=== PATIENT | female | born 1970 | race Caucasian/White ===

== ENCOUNTER → 2016-05-27 | Outpatient (CLI) | payer BC ==
[~2016-05-27] MED LIST: BUPIVACAINE MPF 0.25% 10 ML VIAL. ONE; CHLO500T53 PO; DULO30CA2 PO; DULO60CA44 PO; GABA-585 PO; HYDR-2666 PO; LEVO88TA2 PO; OXYC1TAB9 PO; TIZA4TAB PO; TRAM50TA PO; TRAZ50TA15 PO; [UNRECOGNIZED DRUG - OTHER]; methylPREDNISolone ACETATE 40 MG/ML VIAL. ONE
--- NOTE | 2016-05-27 21:13 | PAIN ---
DATE OF SERVICE: 05/27/2016 DIAGNOSES: 1. Cervical radiculopathy with cervical spinal stenosis, cervical degenerative disk disease. 2. Myofascial pain. HISTORY OF PRESENT ILLNESS: The patient is a 46-year-old female who returns for followup status post cervical epidural steroid injections and trigger point injections. The patient reports these are helpful, but only by about 50% overall. The patient reports still some significant pain in the base of the neck, upper shoulders, right greater than left in the upper back, mid back as well as radiating pain and numbness into the hands and arms and tightness sensation in the neck and back. The patient has been doing physical therapies, stretching and strengthening exercises, heat and massage therapies as well as trigger point release therapies with a massage therapist and on her own with TENS unit use as well. The patient reports they only helped, but are not relieving the pain to a significant extent. The patient reports her pain is a 5-6 on a scale of 10, again some numbness and tingling in the hands and arms with using the upper extremities in repetitive motions or carrying items, driving, etc. The patient reports no new motor or sensory deficits, no new complaints. PHYSICAL EXAMINATION: VITAL SIGNS: The patient's blood pressure is 121/81, pulse 93, respirations 20, temperature 98.2 degrees Fahrenheit, weight is 107 pounds. GENERAL: The patient is awake, alert, oriented, appropriate, very pleasant demeanor. HEENT: Shows normocephalic, atraumatic. Extraocular movements are intact, symmetrical. Oral cavity shows mucous membranes are moist and pink. Dentition is intact. NECK: Shows anterior throat supple without palpable lymphadenopathy noted. Swallow reflex is symmetrical. Neck shows full rotation and motion of cervical spine, some minor tenderness with extension and forward flexion with some pulling and tight sensation in the base of the neck as well as the base of the skull bilaterally, slightly worse on the right than the left by report. CHEST: Shows normal on inspection. Breath sounds are clear to auscultation bilaterally. HEART: Shows S1 and S2 clear. ABDOMEN: Soft, nontender, nondistended. No palpable organomegaly is noted. No rebound or guarding demonstrated. BACK: Shows spine grossly in midline. Cervical paraspinous muscle shows some significant tenderness with very firm rope-like tender musculature throughout the superior, middle and inferior aspect of the cervical paraspinous musculature bilaterally with very firm rope-like musculature consistent with trigger point areas in musculature, more palpable on the left and more tender on the right. This is true into the superior, medial and lateral trapezius with multiple areas of trigger point rope-like musculature, more palpable on the left, but more tender on the right. This is true into the rhomboid distribution, the suprascapular region and infrascapular region and the upper distribution of the thoracic paraspinous musculature bilaterally with very firm rope-like musculature, essentially equal right and left with palpation and again no specific radiation with palpation throughout. PLAN: Options were discussed with the patient. The patient's old chart was reviewed as her current medication regimen and updated. Current review of systems updated today as well. We will plan on repeat trigger point injections of the aforementioned musculature. Risks were again discussed including, but not limited to bleeding, infection, possibility of intravascular injection sequelae, spread of local anesthetic and numbness, pneumothorax, side effects of steroid medication, exacerbation of symptoms and poor results regarding pain control. The patient understands and wishes to proceed. The patient will return to the clinic in approximately 4 weeks for followup. She was counseled on return appointment, activity level and side effects to be aware of. The patient was also given refill prescription for hydrocodone with instructions, side effects to be aware of as well. DIAGNOSES: 1. Myofascial pain. 2. Cervical radiculopathy with cervical degenerative disk disease and cervical spinal stenosis. PROCEDURE: Trigger point injection of the bilateral cervical paraspinous musculature, trapezius musculature, rhomboid musculature and thoracic paraspinous musculature bilaterally using a sterile prep and drape under local anesthesia. Medications injected a total of 40 mg of Depo-Medrol and total of 18 mL of 0.25% bupivacaine after negative aspiration at each level. Condition at discharge is stable. The patient tolerated the procedure well, had no complications. JESSICA GASCA MD DR: ANDREW/jay jay JOB#: [id number] / [id number]
== END ==
LOC: PNCL 08:05
PROVIDERS: ATTEND Anesthesiology
DX: M50.10 Cervical disc disorder with radiculopathy, unspecified cervical region (principal); M48.02 Spinal stenosis, cervical region
CPT/HCPCS: 20553; J1030; J3490

== ENCOUNTER → 2016-06-20 | Outpatient (CLI) | payer BC ==
[2016-06-18 16:54] VITALS: BP 104/53
[~2016-06-20] MED LIST changes: +IBUP200T77 PO; +ONDA4TAB10 SL
--- NOTE | 2016-06-21 18:09 | PAIN ---
DATE OF SERVICE: 06/20/2016 DIAGNOSES: 1. Cervical radiculopathy with cervical degenerative disk disease and cervical spinal stenosis. 2. Myofascial pain. HISTORY OF PRESENT ILLNESS: The patient is a 46-year-old female who returns for followup status post trigger point injections and cervical epidural steroid injection. The patient did well with each of these. Patient reports she has had very rough last 2 weeks, has been to the ER approximately 3 days ago with increased headaches, fever, tender in the neck and shoulders, but significant pain radiating to the upper extremities as it had previously. Patient was given some Benadryl and Reglan, which helped significantly. She was very impressed to how much her headache was improved with this and the pain has decreased since she has been to the ER a couple days ago. The patient reports no new motor or sensory deficits or other complaints, but still significant pain in the base of the neck, upper neck, base of the skull, shoulders bilaterally, upper back and lateral aspect of the shoulders as well. Also, some pain radiating to the upper extremities, slightly more on the left than the right. Currently, rates her pain as 4 on a scale of 10 currently, was 10/10 several days ago. The patient reports her medications were not as effective. Now that the combination with Benadryl, Reglan has been tried she has had much better results with the medications that she is normally taking with good analgesia with the hydrocodone. The patient reports no new motor or sensory deficits, no new other complaints. PHYSICAL EXAMINATION: VITAL SIGNS: The patient's blood pressure is 121/80, pulse 98, respirations 18, temperature is 99.1 degrees Fahrenheit, height 5 feet 1 inch, weighs 106 pounds. GENERAL: The patient is awake, alert, oriented, appropriate, very pleasant demeanor. HEENT: Shows normocephalic, atraumatic. Extraocular movements are intact and symmetrical. Oral cavity, mucous membranes are moist and pink. Dentition is intact. NECK: Shows anterior throat supple without palpable lymphadenopathy noted. Swallow reflex is symmetrical. CHEST: Shows normal on inspection. Breath sounds are clear to auscultation bilaterally. HEART: Shows S1 and S2 clear. ABDOMEN: Soft, nontender, nondistended. No palpable organomegaly is noted. BACK: Shows spine grossly midline. Cervical curvature is normal in lordotic fashion as is thoracic kyphosis. The musculature appears symmetrical in appearance and on inspection bilaterally in the cervical and thoracic distribution with palpation, significant tenderness with very firm rope-like musculature throughout the upper cervical paraspinous musculature weakened the occipital region and some extent bilaterally, very tender, very firm, very indurated and symmetrical ____ into the medial and lateral trapezius as well as the rhomboid musculature, suprascapular, infrascapular region, especially in the lateral aspect of the infrascapular musculature bilaterally, very firm, very tender rope-like musculature consistent with trigger point areas of muscle. This ____ the thoracic and rhomboid distribution to the mid back, as well, very tender, but without specific radiation. The patient shows some decreased ability to rotate the cervical spine past 45 degrees secondary to pain, right and left, as well as extension and forward flexion all tender with pulling sensation with forward flexion and with extension. EXTREMITIES: Upper extremities show deep tendon reflexes at 2+ in the biceps and triceps tendons. Motor exam is strong with manufacturers agent strength rated at 5/5 as is biceps and triceps flexion symmetrical. Peripheral pulses are 2+ radial distribution. No peripheral edema is noted. PLAN: Options were discussed with the patient. The patient's old chart was reviewed as her current medication regimen and updated. Current review of systems updated today as well. We will proceed with trigger point injections of the bilateral cervical paraspinous musculature, bilateral trapezius musculature, bilateral rhomboid musculature, bilateral thoracic paraspinous musculature. Risks were again discussed including, but not limited to bleeding, infection, possibility of intravascular injection sequelae, spread of local anesthetic and numbness, pneumothorax, side effects of steroid medication including immunosuppression and poor results regarding pain control. The patient understands and wishes to proceed. The patient will return to clinic in approximately 4 weeks for followup. She was given refill prescriptions for hydrocodone 7.5, 100 tablets dispensed, also Reglan 10 mg and chlorzoxazone for muscle relaxation at 500 mg all with instructions and side effects discussed. The patient also having very mild fever at home, was encouraged to follow up with her primary care physician regarding this as well. If this becomes more chronic or, worse, patient reports that she has an appointment with her primary physician set up for next week. The patient will return to clinic as scheduled. DIAGNOSES: 1. Myofascial pain. 2. Cervical radiculopathy, cervical spinal stenosis with cervical degenerative disk disease. PROCEDURE: Trigger point injection under sterile prep and drape using local anesthesia. MEDICATIONS INJECTED: A total of 40 mg Depo-Medrol and total of 16 mL of 0.25% bupivacaine. CONDITION AT DISCHARGE: Stable. The patient tolerated the procedure well, had no complications. JESSICA GASCA MD DR: ANDREW/jay jay JOB#: [id number] / [id number]
== END | disposition home or self-care (01) ==
LOC: PNCL 07:35
PROVIDERS: ATTEND Anesthesiology
DX: M50.10 Cervical disc disorder with radiculopathy, unspecified cervical region (principal)
CPT/HCPCS: 20553; J1030; J3490

== ENCOUNTER → 2016-07-18 | Outpatient (CLI) | payer BC ==
[2016-06-18 16:54] VITALS: BP 104/53
[~2016-07-18] MED LIST changes: -BUPIVACAINE MPF 0.25% 10 ML VIAL. ONE; +IOHEXOL 180 MG/ML 10 ML VIAL. ONE; +methylPREDNISolone ACETATE 80 MG/ML VIAL. ONE
--- NOTE | 2016-07-19 01:34 | PAIN ---
DATE OF SERVICE: 07/18/2016 DIAGNOSES: 1. Cervical radiculopathy with cervical degenerative disk disease and cervical spinal stenosis. 2. Myofascial pain. HISTORY OF PRESENT ILLNESS: The patient is a 46-year-old female who returns for followup, status post cervical epidural steroid injections and trigger point injections also medication management with hydrocodone and Voltaren patches. The patient reports that she is doing fairly well. She is much better from the trigger point injections, about 50% for the first 2 weeks, but the pain is beginning to increase in the radiating aspect of her left arm and into the hands bilaterally with some tingling and numbness in the hands also. The patient reports it as a sharp shooting pain, rates as a 4 on a scale of 10, currently mostly in the left arm, upper arm, triceps and forearm and the posterior aspect in the hand including all the fingers on the left side in a radicular fashion as she has had previously. The patient reports still some myofascial pain. She is still doing stretching and strengthening exercises, heat and massage therapies, doing some yoga classes as well. The patient reports no new motor or sensory deficits, no new complaints. PHYSICAL EXAMINATION: VITAL SIGNS: Today, the patient's blood pressure is 115/77, pulse 87, respirations 18, temperature 98.0 degrees Fahrenheit, height is 5 feet 1 inch, weight is 108 pounds. GENERAL: The patient is awake, alert, oriented, appropriate, very pleasant demeanor. HEENT: Shows normocephalic and atraumatic. Extraocular movements are intact, symmetrical. Oral cavity: Mucous membranes are moist and pink. Dentition is intact. NECK: Shows anterior throat supple without palpable lymphadenopathy noted. Swallow reflex is symmetrical. CHEST: Shows normal on inspection. Breath sounds are clear to auscultation bilaterally. HEART: Shows S1 and S2 clear. ABDOMEN: Soft, nontender, nondistended. No palpable organomegaly. No new rebound or guarding demonstrated. BACK: Shows spine grossly in midline. Normal-appearing cervical lordotic curvature and thoracic kyphotic curvature. The patient has some tattooing on the upper back and neck. Cervical paraspinous musculature shows symmetrical on inspection; with palpation, it is firm and tender bilaterally in the middle and inferior aspect of the cervical paraspinous musculature as well as superior medial and lateral trapezius, worse on the left than the right, but without significant atrophy or hypertrophy. There is some significant tenderness with palpation in the bilateral areas and some trigger points, which are firm rope-like musculature in the cervical paraspinous musculature as well as the trapezius into the rhomboid, more on the left than the right, suprascapular and infrascapular musculature likewise as well very tender, but less than on previous exam by comparison. EXTREMITIES: Upper extremities show deep tendon reflexes at 2+ in the biceps and triceps tendons. Motor exam is strong with 5/5 pollution control engineer strength, biceps and triceps flexion. Peripheral pulses are 2+ radial distribution bilaterally. No peripheral edema is noted. PLAN: Options were discussed with the patient and the patient's old chart was reviewed as her current medication regimen and updated. Current review of systems is updated today as well, and we will proceed with a cervical epidural steroid injection as first in the series with fluoroscopic guidance. Risks were again discussed including but not limited to bleeding, infection, possibility of epidural hematoma, subsequent neurological compromise, dural puncture, headaches, spinal cord and/or nerve damage, side effects of steroid medication and poor results regarding pain control. The patient understands and wishes to proceed. The patient will return to the clinic in approximately 2 weeks for followup. He was given refill prescription for hydrocodone as well as Lidoderm patches with instructions and side effects to be aware discussed with each of these as well as, instructed to continue with physical therapy, exercises, stretching and strengthening and massage, heat techniques as she has been doing. DIAGNOSES: Cervical radiculopathy with cervical degenerative disk disease and cervical spinal stenosis. PROCEDURE: Cervical epidural steroid injection in translaminar approach at the C6-C7 level using C-arm fluoroscopic guidance under sterile prep and drape using local anesthetic. MEDICATIONS INJECTED: Depo-Medrol 120 mg plus 5 mL of preservative-free normal saline and 2 mL of Isovue for contrast. CONDITION AT DISCHARGE: Stable. The patient tolerated the procedure well and had no complications. JESSICA GASCA MD DR: ANDREW/jay jay JOB#: [id number] / [id number]
== END | disposition home or self-care (01) ==
LOC: PNCL 07:38
PROVIDERS: ATTEND Anesthesiology
DX: M50.10 Cervical disc disorder with radiculopathy, unspecified cervical region (principal); M48.02 Spinal stenosis, cervical region
CPT/HCPCS: 62321; J1030; J1040

== ENCOUNTER → 2016-08-14 | Outpatient (CLI) | payer BC ==
[2016-06-18 16:54] VITALS: BP 104/53
[~2016-08-14] MED LIST changes: +BUPIVACAINE MPF 0.25% 10 ML VIAL. ONE; +HYDR-2762 PO; -IOHEXOL 180 MG/ML 10 ML VIAL. ONE; -methylPREDNISolone ACETATE 80 MG/ML VIAL. ONE
--- NOTE | 2016-08-14 18:43 | PAIN ---
DATE OF SERVICE: 08/14/2016 DIAGNOSES: 1. Cervical radiculopathy with cervical degenerative disk disease and cervical spinal stenosis. 2. Myofascial pain. HISTORY OF PRESENT ILLNESS: The patient is a 46-year-old female who returns for followup status post both cervical epidural steroid injections and trigger point injections. Last visit was on 07/18/2016. The patient underwent cervical epidural steroid injection at that time with good decrease in pain in her left arm and shoulder, not significant pain reported in the base of the neck, shoulders, upper neck and between the shoulder blades with consistent myofascial pain in these regions. The patient continues to do physical therapy exercises, doing heat and massage therapies and techniques, has been avoiding excessive weightbearing with the upper extremities, but reports still significant tightness and pain in the shoulders and neck as well as the upper back itself. The patient reports no new motor or sensory deficits, no new bowel or bladder incontinence. Reports pain is 6 on a scale of 10. Describes as aching, dull, stabbing, tight and debilitating, still awakens her from sleep on occasion, but not every night. The patient reports otherwise no new motor or sensory deficits. No new changes. PHYSICAL EXAMINATION: VITAL SIGNS: Today, the patient's blood pressure is 121/88, pulse 85, respirations 20, temperature 98.0 degrees Fahrenheit. Height is 5 feet 1 inch. Weight is 112 pounds. GENERAL: The patient is awake, alert, oriented, appropriate, very pleasant demeanor. HEENT: Head shows normocephalic, atraumatic. Extraocular movements are intact, symmetrical. Oral cavity, mucous membranes are moist and pink. Dentition is intact. NECK: Shows anterior throat supple. Swallow reflex is symmetrical. CHEST: Shows normal on inspection. Breath sounds clear to auscultation bilaterally. HEART: Shows S1 and S2. No murmurs auscultated. ABDOMEN: Soft, nontender, nondistended. BACK: Shows spine grossly midline. Normal appearing cervical lordotic curvature and thoracic kyphotic curvature with palpation in the cervical paraspinous musculature, what appears symmetrical, but with palpation shows significant tenderness and very firm rope-like musculature throughout the upper, middle and lower distribution, cervical paraspinous musculature as well as the superior, medial and lateral trapezius, slightly more on the left than the right with tenderness and more on the right than the left with cervical paraspinous musculature tenderness, also tender in the rhomboid musculature with very firm rope-like musculature as well as the right superior aspect of the suprascapular and infrascapular musculature and in the thoracic paraspinous musculature and the upper thoracic distribution bilaterally, but without specific radiation. EXTREMITIES: Upper extremities show deep tendon reflexes 2+ in the biceps and triceps tendons. Motor exam is strong with creative manager strength rated at 5/5 and equal. Options were discussed with the patient and the patient's old chart was reviewed as her current medication regimen updated. Current review of systems updated today as well. We will proceed with trigger point injections of the aforementioned musculature. Risks were again discussed including, but not limited to bleeding, infection, possibility of intravascular injection sequelae, pneumothorax, side effects of steroid medication as well as spread of local anesthetic and numbness and poor results regarding pain control. The patient understands and wishes to proceed. The patient will return to clinic in approximately 4 weeks for followup, was counseled on return appointment, activity level and side effects to be aware of. Also discussed the patient's medication regimen. She has been taking hydrocodone which we had been providing with [facility] reporting showed tramadol, prescription filled on 07/16/2015. The patient denies filling that and will check with her pharmacy, and she was quite surprised that this was on the recent filled record. We will check with her pharmacy as well and make sure that no one has stolen her identity or other circumstances that may be responsible for this showing up on her report. DIAGNOSIS: Myofascial pain. PROCEDURE: Trigger point injections of the bilateral cervical paraspinous musculature, bilateral trapezius musculature, bilateral rhomboid musculature, bilateral thoracic paraspinous musculature, right supra and infraclavicular musculature, using a sterile prep and drape, local anesthetic. Medication injected is a total of 40 mg Depo-Medrol plus total of 12 mL of 0.25% bupivacaine, after negative aspiration at each injection. CONDITION AT DISCHARGE: Stable. The patient tolerated the procedure well, had no complications. JESSICA GASCA MD DR: ANDREW/jay jay JOB#: [id number] / [id number]
== END | disposition home or self-care (01) ==
LOC: PNCL 07:40
PROVIDERS: ATTEND Anesthesiology
DX: M79.1 Myalgia (principal); M50.10 Cervical disc disorder with radiculopathy, unspecified cervical region; M48.02 Spinal stenosis, cervical region
CPT/HCPCS: 20553; J1030; J3490

== ENCOUNTER → 2016-09-09 | Outpatient (CLI) | payer BC ==
[2016-06-18 16:54] VITALS: BP 104/53
[~2016-09-09] MED LIST changes: -BUPIVACAINE MPF 0.25% 10 ML VIAL. ONE; +IOHEXOL 180 MG/ML 10 ML VIAL. ONE; +methylPREDNISolone ACETATE 80 MG/ML VIAL. ONE
--- NOTE | 2016-09-10 01:39 | PN ---
DATE: 09/09/2016 PROGRESS NOTE FOR PAIN CLINIC DIAGNOSES: 1. Cervical radiculopathy with cervical degenerative disk disease and cervical spinal stenosis. 2. Myofascial pain. HISTORY OF PRESENT ILLNESS: A 46-year-old female who returns for followup status post cervical epidural steroid injection x 1 and trigger point injections. The patient reports she is overall has been doing better, about 50% improvement overall, still some pain in the base of the neck and shoulders, right and left fairly equal. It is a 7 on a scale of 10 at its worst and 3 at ____. The patient reports worse with activity, standing, walking. She was taken into the physical therapy; however, she is doing massage therapies, heat, stretching techniques as well on her own. Still have some difficulty sleeping more than 4 hours at night. She has to reposition get of the bed, changed position with her neck and shoulders to decrease in pain. Again she has had multiple trigger point injections which were helpful, temporary and 1 cervical epidural steroid injection that is ____ with good results again somewhat temporary, but improved overall. The patient reports no new motor or sensory deficits, no new complaints. The patient reports her pain is aching, sharp, tight shooting with some stabbing, constant qualities as well. PHYSICAL EXAMINATION: VITAL SIGNS: The patient's blood pressure 102/64, pulse 79, respirations are 20, temperature is 98.1 degrees Fahrenheit. Height is 5 feet 1 inch. Weight is 111 pounds. GENERAL: The patient is awake, alert, oriented, appropriate, very pleasant demeanor. HEENT: Head shows normocephalic, atraumatic. Extraocular movements are intact and symmetrical. Oral cavity, mucous membranes are moist and pink. Dentition is intact. NECK: Shows anterior throat supple without palpable lymphadenopathy noted. Swallow reflex is symmetrical. CHEST: Shows normal on inspection. Breath sounds are clear to auscultation bilaterally. HEART: Shows S1 and S2 clear. ABDOMEN: Soft, nontender, nondistended. BACK: Shows spine grossly midline. Cervical spine shows normal lordotic curvature. Cervical paraspinous musculature shows some moderate tenderness with palpation in the inferior aspect of the cervical paraspinous musculature, but without specific trigger points. There is trigger point in the medial superior trapezius on the left and slightly less tender on the right, present without significant radiation. The patient does show good rotational motion of cervical spine, both laterally greater than 45 degrees, close to 90 degrees right and left rotation as well as extension and forward flexion without significant disability. EXTREMITIES: Upper extremities showed deep tendon reflexes at 2+ in the biceps and triceps tendons. Motor exam is strong with new accounts representative strength rated at 5/5 as is biceps and triceps flexion and symmetrical. Options were discussed with the patient. The patient's old chart was reviewed as her current medication regimen updated. Current review of systems updated today as well and we will proceed with a second in the series of cervical epidural steroid injection with fluoroscopic guidance. Risks were again discussed including, but not limited to bleeding, infection, possibility of epidural hematoma, subsequent neurologic compromise, dural puncture, headaches, spinal cord and/or nerve damage, side effects of steroid medication and poor results regarding pain control. The patient understands and wishes to proceed. The patient will return to clinic in approximately 2 weeks for followup, was counseled on return appointment, activity level and side effects to be aware of, also discussed the patient's medication regimen. She is taking tramadol, which she received as an outside facility also we have been prescribing hydrocodone. We discussed this would no longer be provided as we do not supplied this on a long-term basis and any further prescriptions would need to go through her primary care physician, although I feels she will need these medications from time to time. Now she does have chronic developing issues with the patient and the patient understands this as well. We gave her 1 final prescription today for hydrocodone 7.5 mg 1 tablet every 4-6 hours on a p.r.n. number basis, dispensed 100 with instructions, side effects to be aware of discussed as well. DIAGNOSIS: Cervical radiculopathy, cervical spinal stenosis, cervical degenerative disk disease. PROCEDURE: Cervical epidural steroid injection in translaminar approach at the C6-C7 level. Using a C-arm fluoroscopic guidance under sterile prep and drape using local anesthetic. Medications injected 120 mg Depo-Medrol plus 5 mL of preservative-free normal saline and 2 mL Isovue for contrast. CONDITION AT DISCHARGE: Stable. The patient tolerated the procedure well and had no complications. JESSICA GASCA MD DR: ANDREW/jay jay JOB#: [id number] / [id number] JOSE Ignacio
== END | disposition home or self-care (01) ==
LOC: PNCL 07:40
PROVIDERS: ATTEND Anesthesiology
DX: M50.123 Cervical disc disorder at C6-C7 level with radiculopathy (principal); M48.02 Spinal stenosis, cervical region
CPT/HCPCS: 62321; J1030; J1040

== ENCOUNTER → 2016-10-29 | Outpatient (CLI) | payer BC ==
[2016-06-18 16:54] VITALS: BP 104/53
[~2016-10-29] MED LIST changes: -HYDR-2666 PO; +HYDR-2758 PO
--- NOTE | 2016-10-30 01:56 | PAIN ---
DATE OF SERVICE: PROGRESS NOTE FOR PAIN CLINIC DIAGNOSES: 1. Cervical radiculopathy with cervical spinal stenosis and cervical degenerative disk disease. 2. Myofascial pain. HISTORY OF PRESENT ILLNESS: The patient is a 46-year-old female, who returns for followup, status post cervical epidural steroid injection x 2, last seen on 09/09/2016, also with trigger point injections in the past, which she is responding to fairly well with about a 50% improvement on each of these. The patient reports again after last injection, it is about 70% improved in the neck and shoulders with some returning radicular pain now in the bilateral shoulders and arms with tingling in the hands. She has been dropping things with her right hand more noticeably than the left, rates her pain as a 9 on a scale of 10 at its worst, 7 at its least. It is an aching, sharp, tight, cramping, stabbing, and constant pain, becoming more noticeable. It has been worse with using upper extremities, reaching above her head, and awakens her from sleep at night. She has to reposition or take pain medication to get the pain down where she can sleep again. The patient reports no new motor or sensory deficits, but still significant pain is noted in the bilateral upper extremities. PHYSICAL EXAMINATION: VITAL SIGNS: The patient's blood pressure is 130/88, pulse is ____, respirations 18, temperature 98.0 degrees Fahrenheit, height is 5 feet 1 inch, and weight is 114 pounds. GENERAL: The patient is awake, alert, oriented, and appropriate, very pleasant demeanor. HEENT: Head shows normocephalic, atraumatic. Extraocular movements are intact and symmetrical. Oral cavity, mucous membranes are moist and pink. Dentition is intact. NECK: Shows anterior throat supple without palpable lymphadenopathy noted. Swallow reflex is symmetrical. CHEST: Shows normal on inspection. Breath sounds are clear to auscultation bilaterally. HEART: Shows S1 and S2 clear. No murmurs auscultated. ABDOMEN: Soft, nontender, and nondistended. BACK: Shows spine grossly midline. Cervical paraspinous musculature shows some moderate tenderness with palpation in the middle and inferior aspect of the cervical paraspinous musculature as well as the superior, medial, and lateral trapezius, slightly more tender on the right than the left, but appears symmetrical with no atrophy or hypertrophy. The patient shows good rotational motion of the cervical spine, both laterally as well as in extension and flexion with some minor pain reported with extension only. EXTREMITIES: Upper extremities showed deep tendon reflexes 2+ in the biceps and triceps tendons. 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 Options were discussed with the patient. The patient's old chart was reviewed, as well as her current medication regimen updated, current review of systems updated today as well, and we will proceed with a third in the series of cervical epidural steroid injection today with fluoroscopic guidance. Risks were again discussed, including, but not limited to bleeding, infection, possibility of epidural hematoma, subsequent neurologic compromise, dural puncture, headaches, spinal cord and/or nerve damage, side effects of steroid medication, and poor results regarding pain control. The patient understands and wishes to proceed. The patient will return to clinic in approximately 1 week for followup and we will plan on trigger point injections at her next visit ____. The patient was counseled on activity level as well as side effects to be aware of. DIAGNOSES: Cervical radiculopathy with cervical spinal stenosis and cervical degenerative disk disease. PROCEDURE: Cervical epidural steroid injection in translaminar approach at C6-7 level using C-arm fluoroscopic guidance under sterile prep and drape using local anesthetic. MEDICATIONS INJECTED: Depo-Medrol 120 mg plus 5 mL preservative-free normal saline and 2 mL of Isovue for contrast. CONDITION ON DISCHARGE: Stable. The patient tolerated the procedure well, had no complications. JESSICA GASCA MD DR: ANDREW/jay jay JOB#: [id number] / [id number]
== END | disposition home or self-care (01) ==
LOC: PNCL 08:10
PROVIDERS: ATTEND Anesthesiology
DX: M50.123 Cervical disc disorder at C6-C7 level with radiculopathy (principal); M48.02 Spinal stenosis, cervical region
CPT/HCPCS: 62321; J1030; J1040

== ENCOUNTER → 2016-11-05 | Outpatient (CLI) | payer BC ==
[2016-06-18 16:54] VITALS: BP 104/53
[~2016-11-05] MED LIST changes: +BUPIVACAINE MPF 0.25% 10 ML VIAL. ONE; -IOHEXOL 180 MG/ML 10 ML VIAL. ONE; -methylPREDNISolone ACETATE 80 MG/ML VIAL. ONE
== END | disposition home or self-care (01) ==
LOC: PNCL 09:22
PROVIDERS: ATTEND Anesthesiology
DX: M79.1 Myalgia (principal); M50.10 Cervical disc disorder with radiculopathy, unspecified cervical region; M48.02 Spinal stenosis, cervical region
CPT/HCPCS: 20553; J1030; J3490

== ENCOUNTER → 2016-12-11 | Outpatient (CLI) | payer BC ==
[2016-06-18 16:54] VITALS: BP 104/53
--- NOTE | 2016-12-12 00:23 | PN ---
DATE: 12/11/2016 PROGRESS NOTE FOR PAIN CLINIC DIAGNOSES: 1. Cervical radiculopathy with cervical degenerative disk disease and cervical spinal stenosis. 2. Myofascial pain. HISTORY OF PRESENT ILLNESS: The patient is a 46-year-old female who returns for followup status post trigger point injection as well as cervical epidural steroid injections, most recently seen on 11/05/2016. The patient did very well with the trigger point injection at that time, reports the pain is returning now in the upper back, neck, shoulders, in to the mid back as well bilaterally, somewhat worse on the left than the right, has been previously, but very tender, rates as 8 on a scale of 10 at its worst, at 3 on a scale of 10 at its least. The patient reports it as a 3 on a scale of 10, states aching, tight shooting, tingling with radiating, constant pain, becoming more severe, worse with activity, worse with motion, using her arms above her head, especially on the left side. She has difficulty with sleeping. She sleeping about 3-4 hours a night, she has to reposition, take pain medication at night. She is only taking, by her report, anti-inflammatories now and gabapentin for the pain management. The patient reports no new motor or sensory deficits, no side effects. PHYSICAL EXAMINATION: VITAL SIGNS: The patient's blood pressure is 112/79, pulse 67, respirations 18, temperature is 98.3 degrees Fahrenheit. Height is 5 feet 1 inch, weight is 119 pounds. GENERAL: The patient is awake, alert, oriented, appropriate, very pleasant demeanor. HEENT: Head shows normocephalic, atraumatic. Extraocular movements are intact and symmetrical. Oral cavity shows mucous membranes moist and pink. Dentition is intact. NECK: Shows anterior throat supple without palpable lymphadenopathy noted. Swallow reflex is symmetrical. CHEST: Shows normal on inspection. Breath sounds are clear to auscultation bilaterally. HEART: Shows S1 and S2 clear. ABDOMEN: Soft, nontender, nondistended. BACK: Shows spine grossly in the midline. Cervical paraspinous musculature shows symmetrical on inspection with palpation and is very firm, very tender rope-like areas of musculature consistent with trigger point musculature in the superior aspect of the cervical paraspinous musculature throughout the middle and lower distribution, also in the superior medial and lateral trapezius, more tender on the left than the right with very firm rope-like musculature throughout these regions, also into the rhomboid musculature, again worse on the left than the right, but present bilaterally without radiation, supra and infrascapular musculature on the right side; however, is much more tender than the left with areas of trigger point musculature, very tender as well. This is true into the mid thoracic distribution of paraspinous muscles, not as tender, but significantly palpable rope-like musculature throughout these regions. Options were discussed with the patient. The patient's old chart was reviewed as her current medication regimen updated. Current review of systems updated today as well and we will proceed with trigger point injections of the identified musculature. Risks were again discussed including, but not limited to bleeding, infection, possibility of intravascular injection sequelae, spread of local anesthetic and numbness, pneumothorax, side effects of steroid medication and poor results regarding pain control. The patient understands and wishes to proceed. The patient will return to the clinic in approximately 2 weeks for followup, was counseled on return appointment, activity level and side effects to be aware of. DIAGNOSIS: Myofascial pain. PROCEDURE: Trigger point injections of bilateral cervical paraspinous musculature, bilateral trapezius, bilateral rhomboid musculature, bilateral thoracic paraspinous musculature as well as the left supra and infrascapular musculature using sterile prep and drape under local anesthetic. Medication injected is a total of 40 mg of Depo-Medrol plus a total of 12 mL of 0.25% bupivacaine after negative aspiration in each region. CONDITION AT DISCHARGE: Stable. The patient tolerated the procedure well, had no complications. JESSICA GASCA MD DR: ANDREW/jay jay JOB#: [id number] / [id number]
== END | disposition home or self-care (01) ==
LOC: PNCL 13:27
PROVIDERS: ATTEND Anesthesiology
DX: M79.1 Myalgia (principal); M50.10 Cervical disc disorder with radiculopathy, unspecified cervical region; M48.02 Spinal stenosis, cervical region
CPT/HCPCS: 20553; J1030; J3490

== ENCOUNTER → 2016-12-27 | Outpatient (CLI) | payer BC ==
[2016-06-18 16:54] VITALS: BP 104/53
[~2016-12-27] MED LIST changes: -BUPIVACAINE MPF 0.25% 10 ML VIAL. ONE; +IOHEXOL 180 MG/ML 10 ML VIAL. ONE; +methylPREDNISolone ACETATE 80 MG/ML VIAL. ONE
--- NOTE | 2016-12-27 09:48 | PAIN ---
DATE OF SERVICE: 12/27/2016 PROGRESS NOTE FOR PAIN CLINIC DIAGNOSES: 1. Cervical radiculopathy with cervical degenerative disk disease and cervical spinal stenosis. 2. Myofascial pain. HISTORY OF PRESENT ILLNESS: The patient is a 46-year-old female, who returns for followup status post trigger point injection as well as cervical epidural steroid injection. The patient did very well with each of these for at least a temporary period of time. The patient reports about 50% improvement after the last trigger point injections, but her main complaint today is pain in the neck that radiates to the left upper extremity as it has previously. The patient reports tingling and numbness. It is a constant, severe pain that is aching, tight and shooting into the left arm, worse over the past week or so, rates it at 8 on a scale of 10 when it is worse and 6 ____, patient report it is 6 on a scale of 10 today. The patient reports no new motor or sensory deficits, no new bowel or bladder incontinence. The trigger point injections have increased some mobility with the neck and shoulders, but still significant pain that returns after about 2-3 weeks. The patient reports it awakens her from sleep. She sleeps only 3-4 hours at a time at night to reposition or change positions to get back to sleep. PHYSICAL EXAMINATION: VITAL SIGNS: The patient's blood pressure 110/63, pulse 77, respirations 18, temperature 97.9 degrees Fahrenheit. Height is 5 feet 1 inch, weight is 122 pounds. GENERAL: The patient is awake, alert, oriented, appropriate, very pleasant demeanor. HEENT: Head shows normocephalic, atraumatic. Extraocular movements intact, symmetrical. Oral cavity: Mucous membranes moist and pink. Dentition is intact. NECK: Shows anterior throat supple. Swallow reflex is symmetrical. CHEST: Shows normal with inspection. Breath sounds clear to auscultation bilaterally. HEART: Shows S1 and S2 clear. No murmurs auscultated. ABDOMEN: Soft, nontender, nondistended. BACK: Shows spine grossly midline. Cervical paraspinous muscle shows symmetrical with inspection on palpation shows some moderate tenderness in the middle and inferior aspect of the cervical paraspinous musculature bilaterally and into the left trapezius, more than the right with tenderness to palpation again diffusely without trigger points or radiation, but significant trigger points in the rhomboid distribution bilaterally, worse on the left ____ thoracic paraspinous on the left side greater than right. Upper extremity showed deep tendon reflexes 2+ in the biceps and triceps tendons. 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 Peripheral pulses are 2+ in the radial distribution bilaterally. Options were discussed with the patient and the patient's old chart was reviewed as her current medication regimen updated. Current review of systems updated today as well. We will proceed with a first in this series of cervical epidural steroid injection using C-arm fluoroscopic guidance. Risks were again discussed including, but not limited to bleeding, infection, possibility of epidural hematoma, subsequent neurologic compromise, dural puncture, headaches, spinal cord and/or nerve damage, side effects of steroid medication and poor results regarding pain control. The patient understands and wishes to proceed. The patient will return to clinic in approximately 2 weeks for followup, was counseled on return appointment, activity level and side effects to be aware of. DIAGNOSES: Cervical radiculopathy, cervical spinal stenosis and cervical degenerative disk disease. PROCEDURE: Cervical epidural steroid injection in translaminar approach at the C6-C7 level using C-arm fluoroscopic guidance under sterile prep and drape using local anesthetic. MEDICATION INJECTED: A total of 120 mg Depo-Medrol plus 5 mL of preservative-free normal saline and 2 mL of Isovue for contrast. CONDITION AT DISCHARGE: Stable. The patient tolerated procedure well, had no complications. JESSICA GASCA MD DR: ANDREW/jay jay JOB#: [id number] / [id number]
== END | disposition home or self-care (01) ==
LOC: PNCL 07:31
PROVIDERS: ATTEND Anesthesiology
DX: M50.123 Cervical disc disorder at C6-C7 level with radiculopathy (principal); M48.02 Spinal stenosis, cervical region
CPT/HCPCS: 62321; J1030; J1040

== ENCOUNTER → 2017-01-03 | Outpatient (CLI) | payer BC ==
[2016-06-18 16:54] VITALS: BP 104/53
[~2017-01-03] MED LIST changes: -IOHEXOL 180 MG/ML 10 ML VIAL. ONE; -methylPREDNISolone ACETATE 40 MG/ML VIAL. ONE; -methylPREDNISolone ACETATE 80 MG/ML VIAL. ONE
--- NOTE | 2017-01-03 12:23 | KCIC ---
MRI Cervical Spine Without Contrast History: Cervical radiculopathy, previous neck fracture as a teenager, chronic neck pain, bilateral upper extremity pain and numbness Technique: Multiplanar, multi sequential noncontrast MR imaging was performed of the cervical spine. Comparison: None Findings: Cervical vertebral body stature is maintained. There is straightening of the cervical spine. Cervical cord caliber is within normal limits without convincing focal signal abnormality allowing for mild artifact. There is no significant marrow edema. AP alignment is adequate. There is moderate to severe degenerative disc disease C5-C6, minimally at C6-7 and C4-5. There is posterior annular tear at C4-5. C2-C3: Neural foramina and spinal canal are adequate. C3-C4: There is minimal right uncovertebral degenerative change. Spinal canal and left neural foramen are adequate, mild to moderate narrowing of the right neural foramen. C4-C5: There is negligible posterior bulge. Central canal is borderline 10 mm. Neural foramina are overall adequate. C5-C6: There is disc osteophyte complex greater in the right lateral recess. Central canal is minimally narrowed to 9 mm, somewhat greater degree of narrowing of the right lateral recess. There is right uncovertebral degenerative change. There is fairly severe narrowing of the right neural foramen, left neural foramen overall adequate. C6-C7: There is negligible posterior bulge/protrusion. Central canal is borderline 10 mm. Neural foramina are adequate. C7-T1: Spinal canal and neural foramina are adequate. Impression: 1. There is mild spinal stenosis C5-C6, greater degree of right lateral recess stenosis. 2. There is fairly severe narrowing of the right C5-C6 neural foramen primarily from uncovertebral degenerative change, lesser degree of narrowing on the right at C3-4. 3. There is moderate to severe degenerative disc disease at C5-C6, minimally at C4-5 and C6-7. There is mild spondylosis. Electronically signed by: Gucci Rosales MD (01/03/2017 12:19 PM) [id number]
== END | disposition home or self-care (01) ==
LOC: KCIC MRI 11:38
PROVIDERS: ATTEND Neurological Surgery
DX: M48.02 Spinal stenosis, cervical region (principal); M50.122 Cervical disc disorder at C5-C6 level with radiculopathy; M50.121 Cervical disc disorder at C4-C5 level with radiculopathy; M50.123 Cervical disc disorder at C6-C7 level with radiculopathy; M47.22 Other spondylosis with radiculopathy, cervical region
CPT/HCPCS: 72141

== ENCOUNTER → 2017-02-06 | Outpatient (CLI) | payer BC ==
[2016-06-18 16:54] VITALS: BP 104/53
[~2017-02-06] MED LIST changes: +HYDR200T5 PO; +IOHEXOL 180 MG/ML 10 ML VIAL. ONE; +methylPREDNISolone ACETATE 40 MG/ML VIAL. ONE; +methylPREDNISolone ACETATE 80 MG/ML VIAL. ONE
--- NOTE | 2017-02-07 04:31 | PAIN ---
DATE OF SERVICE: 02/06/2017 PROGRESS NOTE FOR PAIN CLINIC DIAGNOSES: Cervical radiculopathy with cervical spinal stenosis and cervical degenerative disk disease. HISTORY OF PRESENT ILLNESS: The patient is a 46-year-old female who returns for followup status post cervical epidural steroid injection x 1 on 12/27/2016. The patient reports she did very well with this. Initially about 75% improvement on the pain in the neck and bilateral upper extremities and again worse on the left with a gradual return of the pain to about 40% improvement overall. Currently, the patient reports it is 8 on a scale of 10. It is worse 7 on average at 3 on a scale of 10 at least is a 3 on a scale of 10 today. The patient reports the pain is aching, sharp, dull tight shooting, stabbing, becoming more constant in the base of the neck, shoulders, upper back and into left upper extremity greater than the right, but in both hands with some tingling and numbness as well. The patient reports it awakens her from sleep about 3-4 times at night. She has to reposition, get out of bed, changing positions, take pain medication she can use to get back to sleep. The patient reports no new motor or sensory deficits, no new bowel or bladder incontinence or other complaints. PHYSICAL EXAMINATION: VITAL SIGNS: The patient's blood pressure 106/60, pulse 81, respirations 18, temperature 98.1 degrees Fahrenheit. Height is 5 feet 1 inch, weight is 120 pounds. GENERAL: The patient is awake, alert, oriented, appropriate, very pleasant demeanor. HEENT: Head shows normocephalic, atraumatic. Extraocular movements are intact and symmetrical. Oral cavity shows mucous membranes moist and pink. Dentition is intact. NECK: Shows anterior throat supple without palpable lymphadenopathy noted. Swallow reflex is symmetrical. CHEST: Shows normal on inspection. Breath sounds clear to auscultation bilaterally. HEART: Shows S1, S2 clear. No murmurs auscultated. ABDOMEN: Soft, nontender, nondistended. BACK: Shows spine grossly midline. Cervical paraspinous musculature shows some moderate tenderness with palpation, but symmetrical on inspection with diffuse tenderness in the inferior and middle aspect of the cervical paraspinous muscles without radiation and trapezius musculature slightly tender as well to a moderate extend actually more on the left than the right, but again symmetrical without atrophy, hypertrophy. The patient has good rotation and motion of cervical spine is slightly guarded with extension, but not with forward flexion. Right and left lateral rotation is slightly guarded, but full rotation past 45 degrees right and left. Upper extremities show deep tendon reflexes 2+ in the biceps and triceps tendons. 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 Peripheral pulses are 2+ bilaterally. No peripheral edema is noted. Options were discussed with the patient and the patient's old chart was reviewed as her current medication regimen updated. Current review of systems updated today as well. We will proceed with a second in this series of cervical epidural steroid injection with fluoroscopic guidance. Risks were again discussed including, but not limited to bleeding, infection, possibility of epidural hematoma and subsequent neurologic compromise, dural puncture, headaches, spinal cord and/or nerve damage, side effects of steroid medication and poor results regarding pain control. The patient understands and wishes to proceed. The patient will return to clinic in approximately 2 weeks for followup, was counseled on return appointment, activity level and side effects to be aware of. DIAGNOSES: Cervical radiculopathy with cervical degenerative disk disease and cervical spinal stenosis. PROCEDURE: Cervical epidural steroid injection in translaminar approach at the C6-C7 level using a C-arm fluoroscopic guidance under sterile prep and drape using local anesthetic. MEDICATIONS: Injected a total of 120 mg Depo-Medrol plus 5 mL preservative-free normal saline and 2 mL of Isovue for contrast. CONDITION AT DISCHARGE: Stable. The patient tolerated procedure well, had no complications. JESSICA GASCA MD DR: ANDREW/jay jay JOB#: [id number] / [id number]
== END | disposition home or self-care (01) ==
LOC: PNCL 08:17
PROVIDERS: ATTEND Anesthesiology
DX: M50.123 Cervical disc disorder at C6-C7 level with radiculopathy (principal); M48.02 Spinal stenosis, cervical region
CPT/HCPCS: 62321; J1030; J1040

== ENCOUNTER → 2017-03-25 | Outpatient (CLI) | payer BC ==
[2016-06-18 16:54] VITALS: BP 104/53
--- NOTE | 2017-03-25 18:01 | PAIN ---
DATE OF SERVICE: 03/25/2017 DIAGNOSES: Cervical radiculopathy with cervical degenerative disk disease and cervical spinal stenosis. HISTORY OF PRESENT ILLNESS: The patient is a 46-year-old female who returns for followup status post cervical epidural steroid injection x 2, last seen on 02/06/2017. The patient did very well with this with approximately 70%-80% improvement with pain returning now in the base of the neck and left greater than right upper extremity pain. The patient reports no new motor or sensory deficits, no new bowel or bladder incontinence or other complaints but pain has been returning. She is scheduled to have anterior cervical fusion at the end of April and is trying to get some relief. In the meantime, the patient reports neck feels like it has limited mobility. There is an ache that is becoming more constant and pain in the hands, worse on the left than the right but present bilaterally with radiation into the upper extremities. The patient reports it is tingling, stabbing, constant, aching, sharp, dull, tight, shooting; rates an 8 on a scale of 10 at its worse, 6 on average and a 3 at its least, is a 5 today. The patient reports no new motor or sensory deficits with no bowel or bladder incontinence is noted, but still significant pain as noted which awakens her from sleep. It is beginning to once again. Initially, she was doing very well with increased activity and greater tolerance of activity, but sleeping better at night. Now, it is beginning to return with less ability to use her upper extremities in a repetitive motion especially driving the car, lifting things, carrying items, becoming much more uncomfortable once again. PHYSICAL EXAMINATION: VITAL SIGNS: Today, his blood pressure is 109/75, pulse 80, respirations 18, temperature 98.1 Fahrenheit. He is 5 feet 1 inch, weight is 121 pounds. GENERAL: The patient is awake, alert, oriented, appropriate, very pleasant demeanor. HEENT: Head shows normocephalic, atraumatic. Extraocular movements are intact and symmetrical. Oral cavity shows mucous membranes moist and pink. Dentition is intact. NECK: Shows anterior throat supple without palpable lymphadenopathy noted. Swallow reflex is symmetrical. CHEST: Shows normal on inspection. Breath sounds clear to auscultation bilaterally. HEART: Shows S1 and S2 clear. No murmurs auscultated. ABDOMEN: Soft, nontender, nondistended. BACK: Shows spine grossly in the midline. Cervical paraspinous musculature shows symmetrical on inspection with palpation shows some moderate tenderness only diffusely in the low cervical paraspinous distribution without radiation. The patient has good rotational motion both laterally greater than 45 degrees, right and left with full extension and full forward flexion without significant pain reported. The patient's back shows spine grossly in midline. Normal appearing lordotic curvature. Paraspinous musculature is nontender. Upper extremities show deep tendon reflexes at 2+ in the past biceps and triceps tendons. Motor exam is strong with litigation partner strength rated at 5/5 and equal. Peripheral pulses are 2+ radial distribution. Options were discussed with the patient. The patient's old chart was reviewed as her current medication regimen and updated. Current review of systems is updated today as well and we will proceed with a third in the series of cervical epidural steroid injection fluoroscopic guidance. Risks were again discussed including but not limited to bleeding, infection, possibility of epidural hematoma, subsequent neurological compromise, dural puncture, headaches, spinal cord and/or nerve damage, side effects of steroid medication and poor results regarding pain control. The patient understands and wishes to proceed. The patient will return to the clinic in approximately 2 weeks for followup. He was counseled on return appointment, activity levels and side effects to be aware of. DIAGNOSES: Cervical radiculopathy with cervical degenerative disk disease and cervical spinal stenosis. PROCEDURE: Cervical epidural steroid injection using C-arm fluoroscopic guidance under sterile prep and drape using local anesthetic. MEDICATION INJECTED: Total of 120 mg of Depo-Medrol plus 5 mL of preservative-free normal saline and 2 mL of Isovue for contrast. CONDITION AT DISCHARGE: Stable. The patient tolerated the procedure well and had no complications. JESSICA GASCA MD DR: ANDREW/jay jay JOB#: [id number] / [id number]
== END | disposition home or self-care (01) ==
LOC: PNCL 07:40
PROVIDERS: ATTEND Anesthesiology
DX: M50.10 Cervical disc disorder with radiculopathy, unspecified cervical region (principal); M48.02 Spinal stenosis, cervical region
CPT/HCPCS: 62321; J1030; J1040

== ENCOUNTER → 2017-06-04 | Outpatient (CLI) | payer BC ==
[~2017-06-04] MED LIST changes: -CHLO500T53 PO; -DULO30CA2 PO; -DULO60CA44 PO; -GABA-585 PO; -HYDR-2758 PO; -HYDR-2762 PO; -HYDR200T5 PO; -IBUP200T77 PO; +IOHEXOL 180 MG/ML 10 ML VIAL.; -IOHEXOL 180 MG/ML 10 ML VIAL. ONE; -LEVO88TA2 PO; -ONDA4TAB10 SL; -OXYC1TAB9 PO; -TIZA4TAB PO; -TRAM50TA PO; -TRAZ50TA15 PO; -[UNRECOGNIZED DRUG - OTHER]; +methylPREDNISolone ACETATE 40 MG/ML VIAL.; -methylPREDNISolone ACETATE 40 MG/ML VIAL. ONE; +methylPREDNISolone ACETATE 80 MG/ML VIAL.; -methylPREDNISolone ACETATE 80 MG/ML VIAL. ONE
== END ==
LOC: PNCL 08:04
DX: M50.123 Cervical disc disorder at C6-C7 level with radiculopathy (principal); M48.02 Spinal stenosis, cervical region
CPT/HCPCS: 62321; J1030; J1040

== ENCOUNTER → 2017-08-11 | Outpatient (CLI) | payer BC | END | disposition home or self-care (01) | LOC: PNCL 08:12 | DX: M50.123 Cervical disc disorder at C6-C7 level with radiculopathy (principal); M48.02 Spinal stenosis, cervical region; M96.1 Postlaminectomy syndrome, not elsewhere classified | CPT/HCPCS: 62321; J1030; J1040; Q9965 ==

== ENCOUNTER → 2017-08-26 | Outpatient (CLI) | payer BC ==
[~2017-08-26] MED LIST changes: +BUPIVACAINE MPF 0.25% 10 ML VIAL.; -IOHEXOL 180 MG/ML 10 ML VIAL.; -methylPREDNISolone ACETATE 80 MG/ML VIAL.
== END ==
LOC: PNCL 08:32
DX: M50.10 Cervical disc disorder with radiculopathy, unspecified cervical region (principal); M96.1 Postlaminectomy syndrome, not elsewhere classified; M79.1 Myalgia; M48.02 Spinal stenosis, cervical region
CPT/HCPCS: 20553; J1030; J3490

== ENCOUNTER → 2017-09-22 | Outpatient (CLI) | payer BC ==
[~2017-09-22] MED LIST changes: -BUPIVACAINE MPF 0.25% 10 ML VIAL.; +IOHEXOL 180 MG/ML 10 ML VIAL.; +methylPREDNISolone ACETATE 80 MG/ML VIAL.
== END | disposition home or self-care (01) ==
LOC: PNCL 08:10
DX: M50.123 Cervical disc disorder at C6-C7 level with radiculopathy (principal); M48.02 Spinal stenosis, cervical region; M96.1 Postlaminectomy syndrome, not elsewhere classified
CPT/HCPCS: 62321; J1030; J1040; Q9965

== ENCOUNTER → 2017-11-18 | Outpatient (CLI) | payer BC ==
[~2017-11-18] MED LIST changes: +LIDOCAINE 1% PF 2 ML VIAL.
== END | disposition home or self-care (01) ==
LOC: PNCL 08:07
DX: M50.123 Cervical disc disorder at C6-C7 level with radiculopathy (principal); M48.02 Spinal stenosis, cervical region; M96.1 Postlaminectomy syndrome, not elsewhere classified
CPT/HCPCS: 62321; J1030; J1040; Q9965

== ENCOUNTER → 2018-02-12 | Outpatient (CLI) | payer BC ==
[2016-06-18 16:54] VITALS: BP 104/53
[~2018-02-12] MED LIST changes: +AMLO5TAB7 PO; +CHLO500T53 PO; +DEXT10TA38 PO; +DULO30CA2 PO; +DULO60CA44 PO; +GABA-585 PO; +HYDR-2758 PO; +HYDR-2762 PO; +HYDR200T5 PO; +IBUP200T77 PO; -IOHEXOL 180 MG/ML 10 ML VIAL.; +IOHEXOL 180 MG/ML 10 ML VIAL. ONE; +LEVO88TA2 PO; -LIDOCAINE 1% PF 2 ML VIAL.; +LIDOCAINE 2% PF 2ML VIAL. ONE; +ONDA4TAB10 SL; +OXYC-411 PO; +TIZA4TAB PO; +TRAM50TA PO; +TRAZ-85 PO; +[UNRECOGNIZED DRUG - OTHER]; -methylPREDNISolone ACETATE 40 MG/ML VIAL.; +methylPREDNISolone ACETATE 40 MG/ML VIAL. ONE; -methylPREDNISolone ACETATE 80 MG/ML VIAL.; +methylPREDNISolone ACETATE 80 MG/ML VIAL. ONE
--- NOTE | 2018-02-12 22:34 | PAIN ---
DATE OF SERVICE: 02/12/2018 PROGRESS NOTE FOR PAIN CLINIC DIAGNOSES: Cervical radiculopathy with cervical spinal stenosis and cervical degenerative disk disease and post-cervical laminectomy syndrome. HISTORY OF PRESENT ILLNESS: The patient is a 47-year-old female who returns for followup status post cervical epidural steroid injection x 1 on 11/18/2017. The patient did very well with this, reports good decrease in pain for about 70%. The patient reports the pain is returning now in the neck, upper shoulders, upper extremities, more on the left than the right but present bilaterally with some numbness and tingling in the hand. The patient reports it is aching, sharp, dull, tight, shooting, stabbing and becoming more constant and more radiating with activity and worse with using upper extremities, lifting items, carrying things and do repetitive motions with left upper extremity especially. The patient reports the pain is 7 on a scale of 10 at its worst, 5 on average, 2 at its least and is a 5 today. The patient reports no new motor or sensory deficits. Reports it awakens her from sleep about every 4 hours but generally, she can sleep fairly well. She lies on her back or on her right side. The patient reports no new motor or sensory deficits and no new changes. PHYSICAL EXAMINATION: VITAL SIGNS: The patient's blood pressure 117/54, pulse 84, respirations 18, temperature is 98.1 degrees Fahrenheit, height is 5 feet 1 inch and weight is 116 pounds. GENERAL: The patient is awake, alert, oriented, appropriate and very pleasant demeanor. HEENT: Head shows normocephalic and atraumatic. Extraocular movements are intact and symmetrical. Oral cavity: Mucous membranes moist and pink. Dentition is intact. NECK: Shows anterior throat supple without palpable lymphadenopathy noted. Swallow reflex symmetrical. CHEST: Shows normal on inspection. Breath sounds clear to auscultation bilaterally. HEART: Shows S1 and S2 clear. No murmurs auscultated. ABDOMEN: Soft, nontender and nondistended. No palpable organomegaly is noted. No rebound or guarding demonstrated. BACK: Shows spine grossly in the midline. Normal appearing thoracic kyphosis, cervical lordotic curvature and lumbar lordotic curvature. The patient has some tattooing in the posterior cervical distribution. Cervical paraspinous musculature shows symmetrical on palpation, shows moderate tenderness but only diffusely bilaterally in the inferior aspect of the cervical paraspinous musculature, slightly more on the left than the right but present bilaterally and symmetrical. No trigger points. No radiation of pain. The patient has good rotational motion of the cervical spine, both laterally as well as extension and flexion without significant difficulty. EXTREMITIES: Upper extremities show deep tendon reflexes 2+ in the biceps, triceps tendons. Motor exam is strong with payroll and benefits coordinator strength rated 5/5 as is biceps and tricep flexion. Peripheral pulses are 2+ radial bilaterally. No peripheral edema is noted. Options were discussed with the patient. The patient's old chart was reviewed as well as her current medication regimen updated. Current review of systems updated today as well and we will proceed with a cervical epidural steroid injection today with fluoroscopic guidance. Risks were again discussed including, but not limited to bleeding, infection, possibility of epidural hematoma, subsequent neurological compromise, dural puncture, headaches, spinal cord and/or nerve damage, side effects of steroid medication and poor results regarding pain control. The patient understands and wished to proceed. The patient will return to clinic in approximately 2 weeks for followup, was counseled as to return appointment, activity level and side effects to be aware of. DIAGNOSES: Cervical radiculopathy, cervical spinal stenosis and cervical degenerative disk disease and post-cervical laminectomy syndrome. PROCEDURE: Cervical epidural steroid injection, translaminar approach C6-C7 level using C-arm fluoroscopic guidance under sterile prep and drape using local anesthetic. MEDICATION INJECTED: A total of 120 mg Depo-Medrol plus 5 mL of preservative-free normal saline and 2 mL of Isovue for contrast. CONDITION AT DISCHARGE: Stable. The patient tolerated the procedure well and had no complications. JESSICA GASCA MD DR: ANDREW/jay jay JOB#: [id number] / [id number]
== END | disposition home or self-care (01) ==
LOC: PNCL 07:47
PROVIDERS: ATTEND Anesthesiology
DX: M50.123 Cervical disc disorder at C6-C7 level with radiculopathy (principal); M48.02 Spinal stenosis, cervical region; M96.1 Postlaminectomy syndrome, not elsewhere classified; Z79.899 Other long term (current) drug therapy; Z98.890 Other specified postprocedural states
CPT/HCPCS: 62321; J1030; J1040; J2001; Q9965

== ENCOUNTER → 2018-05-01 | Outpatient (CLI) | payer BC ==
[2016-06-18 16:54] VITALS: BP 104/53
[~2018-05-01] MED LIST changes: -HYDR-2758 PO; +HYDR-2761 PO; -HYDR-2762 PO; +HYDR-2765 PO; -LIDOCAINE 2% PF 2ML VIAL. ONE
--- NOTE | 2018-05-01 10:18 | PAIN ---
DATE OF SERVICE: 05/01/2018 PROGRESS NOTE FOR PAIN CLINIC DIAGNOSIS: Cervical radiculopathy with cervical spinal stenosis, cervical degenerative disk disease and post-cervical laminectomy syndrome. HISTORY OF PRESENT ILLNESS: The patient is a 48-year-old female who returns for followup status post cervical epidural steroid injection x 2, last seen on 02/12/2018. The patient did very well with this, approximately 75% improvement for about a month to month and a half after the injection. The patient reports the pain is returning now, worse on the right than the left in the upper extremities, in the base of the neck and shoulders, but doing much better. The patient reports it is returning now, only for about 2 weeks. The patient reports it does not awaken her from sleep at night on most nights. It has been getting worse with activity, using her upper extremities, especially numbness and tingling in both the hands as well as the anterior biceps, posterior triceps, more on the right than left, but present bilaterally. No overt loss of motor function, but significant fatigability in the upper extremities with any activity including driving. The patient reports it is a 5 on a scale of 10 at its worst, 3 on average, 1 at its least and is a 3 today. The patient reports it is aching, tight, shooting, stabbing, burning in the hands and tingling in the base of neck and shoulders. The patient reports no new motor or sensory deficits, no new changes. PHYSICAL EXAMINATION: VITAL SIGNS: The patient's blood pressure is 94/63, pulse 80, respirations 18, temperature 98.2 degrees Fahrenheit, height 5 feet 1 inch, weight 124 pounds. GENERAL: The patient is awake, alert, oriented, appropriate, very pleasant demeanor. HEENT: Head shows normocephalic, atraumatic. Extraocular movements are intact and symmetrical. Oral cavity: Mucous membranes are moist and pink. Dentition is intact. NECK: Shows anterior throat supple without palpable lymphadenopathy noted. Swallow reflex is symmetrical. CHEST: Shows normal on inspection. Breath sounds are clear to auscultation bilaterally. HEART: Shows S1, S2 clear. No murmurs auscultated. ABDOMEN: Soft, nontender, nondistended. No palpable organomegaly is noted. No rebound or guarding demonstrated. BACK: Shows spine grossly in the midline. No deviation, but minor flattening of cervical lordotic curvature is noted. With inspection, paraspinous muscle shows symmetrical in the cervical distribution. With palpation, shows some moderate tenderness inferiorly in the inferior aspect of the cervical paraspinous muscles as well as the superior medial and lateral trapezius, more tender on the right than the left, but present bilaterally without atrophy, hypertrophy or asymmetry. The patient has good rotational motion of cervical spine, both laterally greater than 45 degrees right and left with full extension and full forward flexion without significant increase in pain. EXTREMITIES: The patient's upper extremities show deep tendon reflexes 2+ in the biceps and triceps tendons. Motor exam is strong with compressor mechanic strength rated at 5/5 as is bicep and tricep flexion. Peripheral pulses are 2+ radial. No peripheral edema is noted. Options were discussed with the patient. The patient's old chart was reviewed as her current medication regimen updated. Current review of systems updated today as well. We will proceed with a third in the series of cervical epidural steroid injection today with fluoroscopic guidance. Risks were again discussed including, but not limited to bleeding, infection, possibility of epidural hematoma and subsequent neurological compromise, dural puncture, headaches, spinal cord and/or nerve damage, side effects of steroid medication and poor results regarding pain control. The patient understands and wished to proceed. The patient will return to the clinic in approximately 2 weeks for followup, was counseled on return appointment, activity level and side effects to be aware of. DIAGNOSIS: Cervical radiculopathy with cervical spinal stenosis, cervical degenerative disk disease and post-cervical laminectomy syndrome. PROCEDURE: Cervical epidural steroid injection in translaminar approach at C6-C7 level using C-arm fluoroscopic guidance under sterile prep and drape. MEDICATIONS INJECTED: A total of 120 mg Depo-Medrol plus 5 mL of normal saline and 2 mL of Isovue for contrast. CONDITION AT DISCHARGE: Stable. The patient tolerated the procedure well, had no complications. JESSICA GASCA MD DR: ANDREW/jay jay JOB#: [id number] / [id number]
== END | disposition home or self-care (01) ==
LOC: PNCL 07:42
PROVIDERS: ATTEND Anesthesiology
DX: M50.123 Cervical disc disorder at C6-C7 level with radiculopathy (principal); M48.02 Spinal stenosis, cervical region; M96.1 Postlaminectomy syndrome, not elsewhere classified; Z79.899 Other long term (current) drug therapy
CPT/HCPCS: 62321; J1030; J1040; Q9965

== ENCOUNTER → 2018-05-25 | Outpatient (CLI) | payer BC ==
[2016-06-18 16:54] VITALS: BP 104/53
--- NOTE | 2018-05-25 11:52 | PAIN ---
DATE OF SERVICE: 05/25/2018 DIAGNOSES: 1. Cervical radiculopathy with cervical spinal stenosis. 2. Cervical degenerative disk disease. 3. Post-cervical laminectomy syndrome. HISTORY OF PRESENT ILLNESS: The patient is a 48-year-old female who returns for followup status post cervical epidural steroid injections, most recently seen on 05/01/2018. The patient did very well with this with about a 75% improvement after the injection, still some pain in the base of the neck and shoulders, but significant improvement after the last injection. The patient reports it is returning now, base of the neck; bilateral upper extremities, right greater than left, to some extent, but worse with activity, lifting items, repetitive motions, with the right upper extremity and arm. The patient reports it is 8 on a scale of 10 at its worst, 7 on an average, 5 at its least and is 7 today. The patient reports it is tingling, burning, stabbing, radiating, becoming more constant, tight and shooting in the base of the neck and over the left shoulder. The patient reports no new motor or sensory deficits or other changes. The patient reports it does awaken her from sleep, now about every 3-4 hours. Initially, she was doing well, sleeping through the night, increasing activity, work activities, household activities, driving car more comfortably, using her upper extremities more comfortable as well. PHYSICAL EXAMINATION: VITAL SIGNS: The patient's blood pressure is 120/87, pulse 78, respirations 18, temperature 98.3 degrees Fahrenheit, height is 5 feet 1 inch, weight is 123 pounds. GENERAL: The patient is awake, alert, oriented, appropriate, very pleasant demeanor. HEENT: Head shows normocephalic, atraumatic. Extraocular movements are intact and symmetrical. Oral cavity: Mucous membranes moist and pink. Dentition is intact. NECK: Shows anterior throat supple without palpable lymphadenopathy noted. Swallow reflex is symmetrical. CHEST: Shows normal on inspection. Breath sounds clear to auscultation bilaterally. HEART: Shows S1, S2 clear. No murmurs auscultated. ABDOMEN: Soft, nontender, nondistended. No palpable organomegaly is noted. No rebound or guarding demonstrated. BACK: Shows spine grossly in the midline. Cervical lordotic curvature is maintained. Cervical paraspinous muscle shows symmetrical on inspection; on palpation shows some moderate tenderness, but only diffusely in the middle and lower distribution of the cervical paraspinous musculature bilaterally, more on the right than the left into the superior medial trapezius, but without trigger points, without radiation, without asymmetry. The patient has good rotational motion of cervical spine, both laterally as well as extension and flexion without significant increase in pain. EXTREMITIES: The patient's upper extremities show deep tendon reflexes 2+ in the biceps and triceps tendons. Motor exam is strong with 5/5 bleach supervisor strength, bicep and tricep flexion bilaterally. Peripheral pulses are 2+ radial distribution. No peripheral edema is noted. Options were discussed with the patient. The patient's old chart was reviewed as was her current medication regimen updated. Current review of systems updated today as well. We will proceed with a cervical epidural steroid injection today with fluoroscopic guidance. Risks were again discussed including, but not limited to bleeding, infection, possibility of epidural hematoma, subsequent neurological compromise, dural puncture, headaches, spinal cord and/or nerve damage, side effects of steroid medication and poor results regarding pain control. The patient understands and wished to proceed. The patient will return to clinic in approximately 2 weeks for followup. She was counseled as to return appointment, activity level and side effects to be aware of. DIAGNOSES: 1. Cervical radiculopathy. 2. Cervical spinal stenosis. 3. Cervical degenerative disk disease. 4. Post-cervical laminectomy syndrome. PROCEDURE: Cervical epidural steroid injection, translaminar approach at C6-C7 level using C-arm fluoroscopic guidance under sterile prep and drape using local anesthetic. MEDICATION INJECTED: A total of 120 mg Depo-Medrol plus 5 mL of preservative-free normal saline and 2 mL of Isovue for contrast. CONDITION AT DISCHARGE: Stable. The patient tolerated the procedure well, had no complications. JESSICA GASCA MD DR: ANDREW/jay jay JOB#: [id number] / [id number]
== END | disposition home or self-care (01) ==
LOC: PNCL 08:34
PROVIDERS: ATTEND Anesthesiology
DX: M50.123 Cervical disc disorder at C6-C7 level with radiculopathy (principal); M48.02 Spinal stenosis, cervical region; M96.1 Postlaminectomy syndrome, not elsewhere classified
CPT/HCPCS: 62321; J1030; J1040; Q9965

== ENCOUNTER → 2018-06-30 | Outpatient (CLI) | payer BC ==
[2016-06-18 16:54] VITALS: BP 104/53
[~2018-06-30] MED LIST changes: +AMLO5TAB10 PO; -AMLO5TAB7 PO; +BUPIVACAINE MPF 0.25% 10 ML VIAL. ONE; +DIAZ5TAB PO; -DULO60CA44 PO; +DULO60CA45 PO; -TIZA4TAB PO; +TIZA4TAB2 PO; +TRAZ-118 PO; -TRAZ-85 PO; -methylPREDNISolone ACETATE 40 MG/ML VIAL. ONE
--- NOTE | 2018-06-30 10:19 | PAIN ---
DATE OF SERVICE: 06/30/2018 PROGRESS NOTE FOR PAIN CLINIC DIAGNOSES: 1. Cervical radiculopathy with cervical spinal stenosis, degenerative disk disease and post-cervical laminectomy syndrome. 2. Myofascial pain. 3. Right hip joint pain with primary osteoarthritis of the right hip joint. HISTORY OF PRESENT ILLNESS: The patient is a 48-year-old female who returns for followup status post cervical epidural steroid injection on 05/25/2018. The patient reports she did very well with about a 50% improvement overall. Her main complaint that we discussed with her on her last visit was her right hip pain. She is having increased pain with this with walking and standing, usually with putting all of her weight on her right leg, with some significant pain into the posterior gluteus as well as into the anterior groin and anterior medial thigh with radiation with standing, climbing stairs or climbing up on the step with all of her weight on her right leg. The patient reports her pain is a 6 on a scale of 10 at its worst on the leg, 3 on average and 3 at its least and it is a 3 today. It is worse with aching, sharp, tight, shooting, tingling, burning, stabbing, radiating, becoming more constant with ambulation. The patient reports her neck and shoulders, however, are doing much better, still about 30% improved overall. The patient reports no new motor or sensory deficits. No new changes. The patient reports it wakes her from her sleep about every 3 hours with the right hip if she lays on her right side. The patient reports no loss of motor function of the right lower extremity, but significant pain with ambulation. PHYSICAL EXAMINATION: VITAL SIGNS: The patient's blood pressure is 128/90, pulse 83, respirations 20 and temperature 98.7 degrees Fahrenheit. Height is 5 feet 1 inch, weight 116 pounds. GENERAL: The patient is awake, alert, oriented, appropriate, very pleasant demeanor. HEENT EXAMINATION: Shows normocephalic, atraumatic. Extraocular movements are intact and symmetrical. Oral cavity, mucous membranes are moist and pink. Dentition is intact. NECK: Shows anterior throat supple, without palpable lymphadenopathy noted. Swallow reflex is symmetrical. CHEST: Shows normal with inspection. Breath sounds are clear to auscultation bilaterally. HEART: Shows S1, S2 clear. No murmurs auscultated. ABDOMEN: Soft, nontender and nondistended. No palpable organomegaly is noted. No rebound or guarding demonstrated. BACK: Shows spine grossly in the midline. Normal-appearing cervical lordotic curvature, thoracic kyphotic curvature and lumbar lordotic curvature. Cervical paraspinous muscle shows some mild tenderness within the inferior aspect of the cervical paraspinous muscles with palpation into the superior medial trapezius as well, but only very mildly. EXTREMITIES: The patient's right hip, however, shows some significant tenderness with external rotation, with a positive Rodrigo sign on the right side only; left side is negative. Motor exam is strong with dorsiflexion, extension, quadriceps and hamstring flexion, rated at 5/5. Peripheral pulses are 1+ posterior tibial. No peripheral edema is noted. Options were discussed with the patient. The patient's old chart was reviewed as was her current medication regimen updated. Current review of systems updated today as well. We will proceed with a right intra-articular hip joint injection with fluoroscopic guidance. Risks were again discussed including, but not limited to bleeding, infection, possibility of intravascular injection sequelae, spread of local anesthetic and numbness, side effects of steroid medication, exposure to fluoroscopy and poor results regarding pain control. The patient understands and wishes to proceed. The patient will return to the clinic in approximately 2 weeks for followup. She was counseled as to return appointment, activity level and side effects to be aware of. DIAGNOSIS: Right hip joint pain with primary osteoarthritis, right hip joint. PROCEDURE: Right intra-articular hip joint injections using C-arm fluoroscopic guidance under sterile prep and drape using local anesthetic. MEDICATION INJECTED: A total of 80 mg of Depo-Medrol plus 3 mL of 0.25% bupivacaine and 2 mL of Isovue for contrast. CONDITION AT DISCHARGE: Stable. The patient tolerated the procedure well, had no complications. JESSICA GASCA MD DR: ANDREW/jay jay JOB#: [id number] / [id number]
== END | disposition home or self-care (01) ==
LOC: PNCL 08:01
PROVIDERS: ATTEND Anesthesiology
DX: M16.11 Unilateral primary osteoarthritis, right hip (principal); M48.02 Spinal stenosis, cervical region; M79.18 Myalgia, other site; M96.1 Postlaminectomy syndrome, not elsewhere classified; M50.10 Cervical disc disorder with radiculopathy, unspecified cervical region
CPT/HCPCS: 20610; 77002; J1040; J3490; Q9965

== ENCOUNTER → 2018-07-14 | Outpatient (CLI) | payer BC ==
[2016-06-18 16:54] VITALS: BP 104/53
[~2018-07-14] MED LIST changes: -BUPIVACAINE MPF 0.25% 10 ML VIAL. ONE; +DULO60CA44 PO; -DULO60CA45 PO; +TIZA4TAB PO; -TIZA4TAB2 PO; +methylPREDNISolone ACETATE 40 MG/ML VIAL. ONE
--- NOTE | 2018-07-14 17:41 | PAIN ---
DATE OF SERVICE: 07/14/2018 DIAGNOSES: 1. Cervical radiculopathy with cervical spinal stenosis and cervical degenerative disk disease and post-cervical laminectomy syndrome. 2. Myofascial pain. 3. Right hip joint pain with osteoarthritis. HISTORY OF PRESENT ILLNESS: The patient is a female who returns for followup status post cervical epidural steroid injection x 1 and a right hip joint injection on her last visit. The patient reports her hip is doing much better about 90% improvement in the hip. Her main complaint is base of the neck and shoulder pain, bilateral pain in the upper extremities, radiating to the hands and fingers. The patient reports it is getting worse, awakens her from sleep about every 3-6 hours. She is doing much better with walking now, initially was doing well with her arms and shoulders after last injection for the cervical distribution, but that was in May. The patient reports pain is returning. It is tingling, burning, stabbing, aching, sharp, dull, alternating type, shooting in the shoulders, neck as well, radiating, becoming more constant. The patient reports it is a 7 on a scale of 10 at its worst, 4 on average and 2 at its least, is a 4 today. The patient reports no new motor or sensory deficits, no new changes. PHYSICAL EXAMINATION: VITAL SIGNS: The patient's blood pressure 135/92, pulse 84, respirations 16, temperature 98.2 degrees Fahrenheit, weight is 119 pounds. GENERAL: The patient is awake, alert, oriented, appropriate, very pleasant demeanor. HEENT: Head shows normocephalic, atraumatic. Extraocular muscles are intact and symmetrical. Oral cavity: Mucous membranes moist and pink. Dentition is intact. NECK: Shows anterior throat supple without palpable lymphadenopathy noted. Swallow reflex symmetrical. CHEST: Shows normal on inspection. Breath sounds clear to auscultation bilaterally. HEART: Shows S1, S2 clear. No murmurs auscultated. ABDOMEN: Soft, nontender, nondistended. No palpable organomegaly is noted. No rebound or guarding demonstrated. BACK: Shows spine grossly in the midline, tattooing is again noted. Cervical lordotic curvature is slightly flattened. Normal thoracic kyphotic curvature and lumbar lordotic curvature. Cervical paraspinous muscle shows symmetrical on inspection with palpation shows some moderate tenderness only diffusely in the inferior aspect of the cervical paraspinous musculature bilaterally without radiation. The patient's neck shows good rotational motion, slightly guarded with extension, but fully performed as well as right and left lateral rotation past 45 degrees closer to 90 degrees without significant pain reported. Full forward flexion is performed without difficulty as well. The patient's upper extremities show deep tendon reflexes 2+ in the biceps and triceps tendons. 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 Peripheral pulses are 2+ radial distribution. No peripheral edema is noted bilaterally. Options were discussed with the patient. The patient's old chart was reviewed as her current medication regimen updated. Current review of systems updated today as well. We will proceed with a second in a series of cervical epidural steroid injection today with fluoroscopic guidance. Risks were again discussed including, but not limited to bleeding, infection, possibility of epidural hematoma and subsequent neurological compromise, dural puncture, headaches, spinal cord and/or nerve damage, side effects of steroid medication and poor results regarding pain control. The patient understands and wishes to proceed. She will return to clinic in approximately 2 weeks for followup, was counseled on return appointment, activity level and side effects to be aware of. DIAGNOSES: Cervical radiculopathy, cervical spinal stenosis and cervical degenerative disk disease and post-cervical neck syndrome. PROCEDURE: Cervical epidural steroid injection, translaminar approach C6-C7 level using C-arm fluoroscopic guidance under sterile prep and drape using local anesthetic. MEDICATION INJECTED: A total of 120 mg Depo-Medrol plus 5 mL of preservative-free normal saline and 2 mL of Isovue for contrast. CONDITION AT DISCHARGE: Stable. The patient tolerated procedure well, had no complications. JESSICA GASCA MD DR: ANDREW/jay jay JOB#: [id number] / [id number]
== END | disposition home or self-care (01) ==
LOC: PNCL 07:50
PROVIDERS: ATTEND Anesthesiology
DX: M50.123 Cervical disc disorder at C6-C7 level with radiculopathy (principal); M48.02 Spinal stenosis, cervical region; M16.11 Unilateral primary osteoarthritis, right hip; M96.1 Postlaminectomy syndrome, not elsewhere classified; M79.18 Myalgia, other site
CPT/HCPCS: 62321; J1030; J1040; Q9965

== ENCOUNTER → 2018-08-05 | Outpatient (CLI) | payer BC ==
[2016-06-18 16:54] VITALS: BP 104/53
[~2018-08-05] MED LIST changes: -IOHEXOL 180 MG/ML 10 ML VIAL. ONE; -methylPREDNISolone ACETATE 40 MG/ML VIAL. ONE; -methylPREDNISolone ACETATE 80 MG/ML VIAL. ONE
--- NOTE | 2018-08-05 09:33 | KCIC ---
Examination: MRI of the right hip without contrast HISTORY: History of right hip pain COMPARISON: None available Technique: Multiplanar, multisequence MR imaging of the right hip were performed without contrast. FINDINGS: The right femoral head is within the acetabulum. The attachment of the hamstring tendons to the ischial tuberosity grossly appears intact. The attachment of the iliopsoas tendon to the lesser trochanter grossly appears intact. The attachment of the rectus femoris tendon to the anterior-inferior iliac spine grossly appears intact. No obvious acute fracture is identified. Small right hip joint effusion is identified. There is moderate joint space loss identified in the right hip joint likely due to degeneration with moderate size subchondral cystic changes in the right acetabulum with patchy trabecular edema identified in the anterior acetabulum probably secondary to degeneration. There is fraying of the labrum identified in the superior aspect. Feeling of fall calculi identified in the hip joint. Examination limited due to motion artifact. IMPRESSION: 1. Moderate joint space loss with moderate size subchondral cystic changes identified in the right acetabulum likely moderate right hip degenerative changes. 2. Small right joint effusion probably due to underlying degeneration, however inflammatory etiology is not completely excluded. Electronically signed by: Giancarlo Sigala MD (08/05/2018 9:30 AM) [facility]
== END | disposition home or self-care (01) ==
LOC: KCIC MRI 07:43
PROVIDERS: ATTEND Anesthesiology
DX: M25.451 Effusion, right hip (principal)
CPT/HCPCS: 73721

== ENCOUNTER 2018-09-07 09:28 | Emergency (ER) | payer BC ==
[~2018-09-07] VITALS: Ht 154.9 cm; Wt 54.4 kg
[~2018-09-07 09:28] MED LIST changes: -DIAZ5TAB PO; -IOHEXOL 180 MG/ML 10 ML VIAL. ONE; -methylPREDNISolone ACETATE 40 MG/ML VIAL. ONE; -methylPREDNISolone ACETATE 80 MG/ML VIAL. ONE
[2018-09-07 09:37] VITALS: BP 159/95
[2018-09-07] MEDS ORDERED: diazePAM 5 MG TABLET PO ONE (10:00)
[2018-09-07] MEDS ORDERED: DIAZ5TAB PO (10:17)
--- NOTE | 2018-09-07 10:18 | PHYS DOC ---
Past Medical History Past Medical History: Fibromyalgia Additional Past Medical Histor: SHINGLES, cervical ridiculopathy (ALIYADUYRICHARD M SECOND WORKER) Past Surgical History: Cervical Fusion, Hysterectomy, Other Additional Past Surgical Histo: BLADDER SLING, PELVIC FLOOR SX, L KNEE SX, RECTAL RECONSTRUCTION (ALIYADUYSUSIERICHARD M SECOND WORKER) Alcohol Use: None Drug Use: None (RICHARD PRYOR SECOND WORKER) Adult General Chief Complaint Chief Complaint: NECK INJURY HPI HPI Patient is a 48 year old female who presents with spasming to her neck. The patient was at the pain clinic and received a cervical injection under fluoroscopy. She started having spasming. They tried using heat, massage and ice were unable to stop the spasming. They referred her to the emergency department for medication. (RICHARD PRYOR APRN) Review of Systems Review of Systems Constitutional: Denies fever or chills [] Respiratory: Denies cough or shortness of breath [] Cardiovascular: No additional information not addressed in HPI [] GI: Denies abdominal pain, nausea, vomiting, bloody stools or diarrhea [] : Denies dysuria or hematuria [] Musculoskeletal: See history of present illness Integument: Denies rash or skin lesions [] Neurologic: Denies headache, focal weakness or sensory changes [] Endocrine: Denies polyuria or polydipsia [] All other systems were reviewed and found to be within normal limits, except as documented in this note. (ROYARICHARDCHRISTINE Cee APRN) Current Medications Current Medications Current Medications Medications (Trade) Dose Ordered Sig/Nikki Start Time Stop Time Status Last Admin Dose Admin Acetaminophen/ Hydrocodone Bitart (Lortab 5/325) 2 tab 1X ONCE 09/07/18 10:30 09/07/18 10:31 DC 09/07/18 10:31 2 TAB Diazepam (Valium) 5 mg 1X ONCE 09/07/18 10:00 09/07/18 10:01 DC 09/07/18 09:56 5 MG (ALLA SMITH MD) Allergies Allergies Allergies Coded Allergies Type Severity Reaction Last Updated Verified No Known Drug Allergies 01/17/16 No (ALLA SMITH MD) Physical Exam Physical Exam Constitutional: Well developed, well nourished, no acute distress, non-toxic appearance. [] HENT: Normocephalic, atraumatic, bilateral external ears normal, oropharynx moist, no oral exudates, nose normal. [] Eyes: PERRLA, EOMI, conjunctiva normal, no discharge. [] Neck: Normal range of motion, tenderness to palpation, supple, no stridor. [] Cardiovascular:Heart rate regular rhythm, no murmur [] Lungs & Thorax: Bilateral breath sounds clear to auscultation [] Abdomen: Bowel sounds normal, soft, no tenderness, no masses, no pulsatile masses. [] Skin: Warm, dry, no erythema, no rash. [] Back: No tenderness, no CVA tenderness. [] Extremities: No tenderness, no cyanosis, no clubbing, ROM intact, no edema. [] Neurologic: Alert and oriented X 3, normal motor function, normal sensory function, no focal deficits noted. [] Psychologic: Affect normal, judgement normal, mood normal. [] (RICHARD PRYOR APRN) Current Patient Data Vital Signs Vital Signs Date Time Temp Pulse Resp B/P (MAP) Pulse Ox O2 Delivery O2 Flow Rate FiO2 09/07/18 09:37 98.1 76 20 159/95 (116) 99 Room Air 98.1 (ALLA SMITH MD) EKG EKG [] (RICHARD PRYOR APRN) Radiology/Procedures Radiology/Procedures [] (RICHARD PRYOR APRN) Course & Med Decision Making Course & Med Decision Making Pertinent Labs and Imaging studies reviewed. (See chart for details) []The patient was given 5 mg of Valium in the emergency department. (RICHARD PRYOR APRN) Course & Med Decision Making Staff Physician Addendum: I was working in the ER during the course of this patient's visit. I was available for consultation as needed, but I was not directly involved in the care of this patient. (ALLA SMITH MD) Dragon Disclaimer Dragon Disclaimer This electronic medical record was generated, in whole or in part, using a voice recognition dictation system. (RICHARD PRYOR APRN) Departure Departure Impression: Primary Impression: Muscle spasm Disposition: 01 HOME, SELF-CARE Condition: STABLE Referrals: JOSE ROCHA (PCP) Patient Instructions: Cervical Radiculopathy, Pcph-te-Vram Additional Instructions: Take the medication as directed. Do not drive while taking this medication. Follow-up with your pain management physician for a recheck as scheduled. If worsening return to the emergency department. Scripts Diazepam (VALIUM) 5 Mg Tablet 5 MG PO TID for spasm for 3 Days, #9 TAB Prov: RICHARD PRYOR APRN 09/07/18 RICHARD PRYOR APRN Sep 07, 2018 10:18 ALLA SMITH MD Sep 08, 2018 18:10
[2018-09-07] MEDS ORDERED: HYDROcodone/APAP 5/325MG 1 TAB TABLET PO ONE (10:30)
== END 2018-09-07 10:36 | disposition home or self-care (01) ==
LOC: ER 09:28
DX: M62.838 Other muscle spasm (principal); Z90.710 Acquired absence of both cervix and uterus
CPT/HCPCS: 99283

== ENCOUNTER → 2018-09-07 | Outpatient (CLI) | payer BC ==
[2016-06-18 16:54] VITALS: BP 104/53
[~2018-09-07] MED LIST changes: +IOHEXOL 180 MG/ML 10 ML VIAL. ONE; +methylPREDNISolone ACETATE 40 MG/ML VIAL. ONE; +methylPREDNISolone ACETATE 80 MG/ML VIAL. ONE
--- NOTE | 2018-09-07 22:17 | PAIN ---
DATE OF SERVICE: 09/07/2018 DIAGNOSES: Cervical radiculopathy with cervical spinal stenosis, cervical degenerative disk disease and post-cervical laminectomy syndrome. HISTORY OF PRESENT ILLNESS: The patient is a 48-year-old female who returns for followup status post cervical epidural steroid injections x 2, most recently seen on 07/14/2018. The patient did very well, about 80% improvement and she is still holding on, still some pain in the bilateral shoulders, slightly worse on the left than the right, radiating to upper extremity and to the forearm on the left side more than the right with some tingling and numbness in both arms and hands. The patient reports it is a 7 on a scale of 10 at its worse, 5 on average, 3 at its least and is a 5 today. The patient reports it is aching, sharp, tight, shooting, tingling, stabbing pain. It is becoming more constant with time. The patient reports no new motor or sensory deficits, no new bowel or bladder incontinence. She is planning on having a total hip replacement in about one month, which is scheduled with her orthopedic surgeon. The patient reports it is causing some pain in the back. She is walking with a crutch, which has been putting some increased pain in her back to compensate for the hip pain. The patient reports no new motor or sensory deficits, no new other changes. PHYSICAL EXAMINATION: VITAL SIGNS: Blood pressure 117/83, pulse 75, respirations 18, temperature is 98.2 degrees Fahrenheit. Height is 5 feet 1 inch, weight is 124 pounds. GENERAL: The patient is awake, alert, oriented, appropriate, very pleasant demeanor. HEENT: Head shows normocephalic, atraumatic. Extraocular movements are intact and symmetrical. Oral cavity: Mucous membranes moist and pink. Dentition is intact. NECK: Shows anterior throat supple without palpable lymphadenopathy noted. Swallow reflex is symmetrical. CHEST: Shows normal on inspection. Breath sounds clear to auscultation bilaterally. HEART: Shows S1, S2 clear. No murmurs auscultated. ABDOMEN: Soft, nontender, nondistended. No palpable organomegaly is noted. No rebound or guarding demonstrated. BACK: Shows spine grossly in the midline. Normal appearing thoracic kyphosis and lumbar lordotic curvature. Cervical paraspinous musculature shows symmetrical on inspection. On palpation shows some moderate tenderness diffusely in the middle and lower distribution of paraspinous muscles, but without atrophy, hypertrophy, no trigger points, no radiation of pain. The patient has good rotational motion of cervical spine, both laterally greater than 45 degrees right and left as well as full extension, full forward flexion without significant increase in pain. EXTREMITIES: Upper extremities show deep tendon reflexes 2+ in the biceps and triceps tendons. 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 Peripheral pulses are 2+ radial distribution. No peripheral edema is noted bilaterally. Options were discussed with the patient. The patient's old chart was reviewed as her current medication regimen and updated. Current review of systems is updated today as well. We will proceed with a third in the series of cervical epidural steroid injection today with fluoroscopic guidance. Risks were again discussed including, but not limited to bleeding, infection, possibility of epidural hematoma, subsequent neurologic compromise, dural puncture, headaches, spinal cord and/or nerve damage, side effects of steroid medication and poor results regarding pain control. The patient understands and wished to proceed. The patient to return to clinic in approximately two weeks for followup, was counseled on return appointment, activity level and side effects to be aware of. DIAGNOSES: Cervical radiculopathy with cervical spinal stenosis and cervical degenerative disk disease and post-cervical laminectomy syndrome. PROCEDURE: Cervical epidural steroid injection, translaminar approach C6-C7 level using C-arm fluoroscopic guidance under sterile prep and drape using local anesthetic. MEDICATION INJECTED: A total of 120 mg Depo-Medrol plus 5 mL preservative-free normal saline and 2 mL of contrast. CONDITION AT DISCHARGE: Stable. The patient tolerated the procedure well, had no complications. JESSICA GASCA MD DR: ANDREW/jay jay JOB#: [id number] / [id number]
== END | disposition home or self-care (01) ==
LOC: PNCL 08:10
PROVIDERS: ATTEND Anesthesiology
DX: M50.123 Cervical disc disorder at C6-C7 level with radiculopathy (principal); M48.02 Spinal stenosis, cervical region; M96.1 Postlaminectomy syndrome, not elsewhere classified
CPT/HCPCS: 62321; J1030; J1040; Q9965

== ENCOUNTER → 2018-12-22 | Outpatient (CLI) | payer BC ==
[~2018-12-22] MED LIST changes: +DIAZ5TAB PO; -DULO60CA44 PO; +DULO60CA45 PO; +IOHEXOL 180 MG/ML 10 ML VIAL. ONE; -TIZA4TAB PO; +TIZA4TAB2 PO; +methylPREDNISolone ACETATE 40 MG/ML VIAL. ONE; +methylPREDNISolone ACETATE 80 MG/ML VIAL. ONE
--- NOTE | 2018-12-22 10:10 | PAIN ---
DATE OF SERVICE: 12/22/2018 PROGRESS NOTE FOR PAIN CLINIC DIAGNOSES: 1. Cervical radiculopathy with cervical spinal stenosis and cervical degenerative disk disease and cervical post-laminectomy syndrome. 2. Myofascial pain. 3. Right hip joint pain. HISTORY OF PRESENT ILLNESS: The patient is a 48-year-old female who returns for followup status post cervical epidural steroid injections, most recently seen 09/07/2018. The patient has had a right total hip replacement since that time and hips doing much better. The patient reports her main complaint is neck and bilateral shoulder and upper extremity pain. The patient reports it is returning now over the past month or so, increasing with activity, repetitive motions, driving using her upper extremities, any weightbearing or lifting, reaching above her head with her arms. The patient reports it awakens her from sleep about every 4 hours or so. She can usually reposition and get back to sleep. It is causing some significant disturbance of sleep. The patient reports the pain is a 6 on a scale of 10 at its worst in the past week, 4 on average, 3 at its least and is a 4 today. The patient reported tight, shooting, radiating, becoming more constant with motion. The patient reports initially she was doing better with work activities, household activities, but now the pain is returning. PHYSICAL EXAMINATION: VITAL SIGNS: The patient's blood pressure is 136/97, pulse 74, respirations are 18, temperature 97.9 degrees Fahrenheit, height is 5 feet 1 inch, weight is 120 pounds. GENERAL: The patient is awake, alert, oriented, appropriate, very pleasant demeanor. HEENT: Shows normocephalic, atraumatic. Extraocular movements are intact and symmetrical. Oral cavity: Mucous membranes moist and pink. Dentition is intact. NECK: Shows anterior throat supple without palpable lymphadenopathy noted. Swallow reflex symmetrical. CHEST: Shows normal on inspection. Breath sounds clear to auscultation bilaterally. HEART: Shows S1, S2 clear. No murmurs auscultated. ABDOMEN: Soft, nontender, nondistended. BACK: Shows spine grossly in the midline. Normal appearing thoracic kyphosis and cervical lordotic curvature is slightly flattened. Cervical paraspinous muscle shows symmetrical on inspection, on palpation shows some moderate tenderness diffusely, but only diffusely without radiation. The patient has good rotational motion of cervical spine, both laterally as well as extension and flexion without significant difficulty or increase in pain. EXTREMITIES: Upper extremities show deep tendon reflexes 2+ in the biceps, triceps tendons. 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 Peripheral pulses are 2+ radial distribution. No peripheral edema is noted. Options were discussed with the patient. The patient's old chart was reviewed as her current medication regimen updated. Current review of systems updated today as well. We will proceed with a cervical epidural steroid injection, the first in this series today. Risks were again discussed including, but not limited to bleeding, infection, possibility of epidural hematoma, subsequent neurological compromise, dural puncture, headaches, spinal cord and/or nerve damage, side effects of steroid medication and poor results regarding pain control. The patient understands and wished to proceed. The patient will return to clinic in approximately 2 weeks for followup. She was counseled as to return appointment, activity level and side effects to be aware of. DIAGNOSES: Cervical radiculopathy with cervical spinal stenosis and cervical degenerative disk disease and post-cervical laminectomy syndrome. PROCEDURE: Cervical epidural steroid injection, translaminar approach C6-C7 level using C-arm fluoroscopic guidance under sterile prep and drape using local anesthetic. MEDICATION INJECTED: A total of 120 mg Depo-Medrol plus 5 mL of preservative-free normal saline and 2 mL of contrast. CONDITION AT DISCHARGE: Stable. The patient tolerated the procedure well, had no complications. JESSICA GASCA MD DR: ANDREW/jay jay JOB#: [id number] / [id number]
== END ==
LOC: PNCL 07:35
PROVIDERS: ATTEND Anesthesiology
DX: M50.123 Cervical disc disorder at C6-C7 level with radiculopathy (principal); M96.1 Postlaminectomy syndrome, not elsewhere classified; M79.18 Myalgia, other site
CPT/HCPCS: 62321; J1030; J1040; Q9965

== ENCOUNTER → 2019-01-25 | Outpatient (CLI) | payer BC ==
[~2019-01-25] MED LIST changes: +ACET500T68 PO; -IOHEXOL 180 MG/ML 10 ML VIAL. ONE; +LEVO100T5 PO; +NAPR220C4 PO; -methylPREDNISolone ACETATE 40 MG/ML VIAL. ONE; -methylPREDNISolone ACETATE 80 MG/ML VIAL. ONE
--- NOTE | 2019-01-25 09:48 | PAIN ---
DATE OF SERVICE: 01/25/2019 PROGRESS NOTE FOR PAIN CLINIC DIAGNOSES: 1. Cervical radiculopathy with cervical spinal stenosis and cervical degenerative disk disease with post-cervical laminectomy syndrome. 2. Myofascial pain. HISTORY OF PRESENT ILLNESS: The patient is a 48-year-old female who returns for followup status post trigger point injection as well as cervical epidural steroid injection. The patient reports about 50% improvement after cervical injection. Her trigger point injections have about 70% improved, but has been since a year ago August that she had any of those. The patient has had some work done on her shoulder. She is having 2 more surgeries coming up. She has some significant pain in the last several months at the base of the neck, upper neck, middle neck, lower neck with some significant spasticity. She has been taking baclofen and was taking meloxicam and was given some hair loss from that. She is still doing physical therapies, massage therapies, deep trigger point massage as well, which are helping, but not lasting. The patient reports the pain in the base of the neck and shoulders radiating to the upper extremities at times as well. She has an aching, sharp, dull, tight, shooting, stabbing, cramping, it can be burning, radiating and sometimes constant with activity, lifting items, raising her hand over her head, lifting anything forward even driving a car, using her upper extremities or any repetitive motions with upper extremities that she is doing carrying items at her work, etc. is exacerbating the pain. The patient reports she is only sleeping for a few hours. It does awaken her from sleep every 4-5 hours at night. The patient reports no loss of motor function, but her work activities are becoming significantly more impaired as her daily activities of living. PHYSICAL EXAMINATION: VITAL SIGNS: The patient's blood pressure 117/86, pulse 83, respirations 16, temperature 98.0 degrees Fahrenheit, height is 5 feet 1 inch and weight is 116 pounds. GENERAL: The patient is awake, alert, oriented, appropriate, very pleasant in demeanor. HEENT: Shows normocephalic, atraumatic. Extraocular movements are intact and symmetrical. Oral cavity: Mucous membranes moist and pink. Dentition is intact. NECK: Shows anterior throat supple without palpable lymphadenopathy noted. Swallow reflex symmetrical. BACK: Posterior cervical musculature is symmetrical on inspection, with palpation shows some significant tenderness in the superior, middle and lower distribution of the paraspinous muscles with very firm rope-like musculature consistent with trigger point areas of muscle in the cervical paraspinous muscles throughout the upper, middle and lower distribution, right equal to left and also in the superior medial trapezius and into the lateral trapezius, somewhat worse on the right than the left, but present bilaterally with very firm rope-like musculature, this is true into the upper thoracic paraspinous musculature bilaterally, again worse on the right side than the left, very firm rope-like musculature in this region as well consistent with trigger point areas of musculature without specific radiation. The patient has good rotational motion of cervical spine, though slightly guarded, but past 45 degrees, right and left lateral well as full extension, full forward flexion again somewhat guarded, but without significant limitation. EXTREMITIES: The patient's upper extremities show deep tendon reflexes 2+ in the biceps, triceps tendons. Motor exam is strong with lap grinder strength rated at 5/5 and equal. Peripheral pulses are 2+ in the radial distribution. No peripheral edema is noted. PLAN: Options were discussed with the patient. The patient's old chart was reviewed as her current medication regimen updated. Current review of systems updated today as well. WE will preauthorize the patient for trigger point injections of the cervical paraspinous musculature, trapezius musculature as well as the thoracic paraspinous musculature. The patient will continue with stretching and strengthening exercises, also massage therapies, heat application and stretching. We will wait for preauthorization and plan on trigger point injections at that time. The patient was given a refill for Cymbalta 60 mg 2 tablets daily with instructions, side effects to be aware of as well and will follow up as scheduled. JESSICA GASCA MD DR: ANDREW/jay jay JOB#: [id number] / [id number]
== END | disposition home or self-care (01) ==
LOC: PNCL 07:58
PROVIDERS: ATTEND Anesthesiology
DX: M50.10 Cervical disc disorder with radiculopathy, unspecified cervical region (principal); M48.02 Spinal stenosis, cervical region; M96.1 Postlaminectomy syndrome, not elsewhere classified; M79.18 Myalgia, other site
CPT/HCPCS: G0463

== ENCOUNTER → 2019-04-13 | Outpatient (CLI) | payer BC ==
[~2019-04-13] MED LIST changes: +IOHEXOL 180 MG/ML 10 ML VIAL. ONE; +methylPREDNISolone ACETATE 40 MG/ML VIAL. ONE; +methylPREDNISolone ACETATE 80 MG/ML VIAL. ONE
--- NOTE | 2019-04-13 10:35 | PAIN ---
DATE OF SERVICE: 04/13/2019 PROGRESS NOTE FOR PAIN CLINIC DIAGNOSES: Cervical radiculopathy with cervical spinal stenosis, cervical degenerative disk disease and post-cervical laminectomy syndrome. HISTORY OF PRESENT ILLNESS: The patient is a 49-year-old female who returns for followup status post cervical epidural steroid injections, most recently 12/22/2018, did very well with about 50-60% improvement for several weeks following the injection. The patient reports the pain returned in the base of the neck and shoulders, upper extremities, right greater than left, but present bilaterally in the posterior deltoid, triceps, also in the anterior biceps and anterior forearm, but mostly in the posterior aspect of the forearm and the hands, more on the right hand than the left. The patient reports it is an 8 on a scale of 10 at its worst over the past week, 6 on average, 3 at its least and is a 6 today. The patient reports it is aching type, tingling, cramping, burning and radiating. The patient reports no new motor or sensory deficits. Initially, she was doing better with increased activity after the last injection. We also discussed with her physician. She had a second opinion at [facility] of low dose naltrexone starting at 1.5 mg at night, titrating to 4.5 mg at night. She is looking at a possibility for a compounding pharmacy that can get this locally and we will keep updated on that. PHYSICAL EXAMINATION: VITAL SIGNS: Today, the patient's blood pressure is 109/74, pulse 87, respirations 18, temperature 98.2 degrees Fahrenheit, height is 5 feet 1 inch and weight is 120 pounds. GENERAL: The patient is awake, alert, oriented, appropriate, very pleasant demeanor. HEENT: Shows normocephalic, atraumatic. Extraocular movements are intact and symmetrical. Oral cavity: Mucous membranes moist and pink. Dentition is intact. NECK: Shows anterior throat supple without palpable lymphadenopathy noted. Swallow reflex symmetrical. CHEST: Shows normal on inspection. Breath sounds clear to auscultation bilaterally. HEART: Shows S1, S2 clear. No murmurs auscultated. ABDOMEN: Soft, nontender, nondistended. BACK: Shows spine grossly in the midline. Cervical paraspinous muscle shows symmetrical on inspection, with palpation shows some moderate tenderness in the inferior aspect of the cervical paraspinous muscles diffusely bilaterally into the superior medial trapezius, more on the right than the left with palpation, but without significant radiation, without trigger points. The patient has full rotational motion of cervical spine, both laterally as well as extension and flexion without significant difficulty or pain reported. EXTREMITIES: The patient's upper extremities show deep tendon reflexes 2+ in the biceps and triceps tendons. Motor exam is strong with 5/5 senior controls technician strength, bicep and tricep flexion and symmetrical and equal. Peripheral pulses are 2+ radial distribution. No peripheral edema is noted. Options were discussed with the patient. The patient's old chart was reviewed as her current medication regimen updated. Current review of systems updated today as well. We will proceed with a second in the series of cervical epidural steroid injection today with fluoroscopic guidance. Risks were again discussed including, but not limited to bleeding, infection, possibility of epidural hematoma, subsequent neurologic compromise, dural puncture, headaches, spinal cord and/or nerve damage, side effects of steroid medication and poor results regarding pain control. The patient understands and wished to proceed. The patient will return to clinic in approximately 2 weeks for followup. She was counseled as to return appointment, activity level and side effects to be aware of. DIAGNOSES: Cervical radiculopathy with cervical spinal stenosis, cervical degenerative disk disease and post-cervical laminectomy syndrome. PROCEDURE: Cervical epidural steroid injection, translaminar approach C6-C7 level using C-arm fluoroscopic guidance under sterile prep and drape using local anesthetic. MEDICATION INJECTED: A total of 120 mg Depo-Medrol plus 5 mL of preservative-free normal saline and 2 mL of contrast. CONDITION AT DISCHARGE: Stable. The patient tolerated the procedure well, had no complications. JESSICA GASCA MD DR: ANDREW/jay jay JOB#: [id number] / [id number]
== END ==
LOC: PNCL 08:06
PROVIDERS: ATTEND Anesthesiology
DX: M50.123 Cervical disc disorder at C6-C7 level with radiculopathy (principal); M48.02 Spinal stenosis, cervical region; M96.1 Postlaminectomy syndrome, not elsewhere classified
CPT/HCPCS: 62321; J1030; J1040; Q9965

== ENCOUNTER → 2019-04-30 | Outpatient (CLI) | payer BC ==
--- NOTE | 2019-04-30 13:38 | PAIN ---
DATE OF SERVICE: 04/30/2019 PROGRESS NOTE FOR PAIN CLINIC DIAGNOSES: 1. Cervical radiculopathy with cervical spinal stenosis and cervical degenerative disk disease and post-cervical laminectomy syndrome. 2. Myofascial pain. HISTORY OF PRESENT ILLNESS: The patient is a 49-year-old female, who returns for followup status post trigger point injection as well as cervical epidural steroid injection on her last visit. The patient reports only about 40% better after the last injection, but it is not lasting as well as it has in the past. Still some pain in the base of neck and shoulders, upper extremities bilaterally, right equal to left at this time. The patient reports it is an 8 on a scale of 10 at its worst over the past week, 6 on average, 6 at its least and is a 6 today. The patient reports it is aching, shooting, tingling, burning, stabbing, radiating, becoming more constant with activity, repetitive motions, lifting any weights with upper extremities or carrying items or anything which she reaches overhead with her hands as well, difficulty with sleeping, awakens her from sleep occasionally, but not every night. The patient reports no new motor or sensory deficits, no new changes, still some increased spasticity in the base of neck and shoulders as well. PHYSICAL EXAMINATION: VITAL SIGNS: The patient's blood pressure 125/88, pulse 87, respirations 16, temperature 98.0 degrees Fahrenheit, weight is 122 pounds. GENERAL: The patient is awake, alert, oriented, appropriate, very pleasant demeanor. HEENT: Shows normocephalic, atraumatic. Extraocular movements are intact and symmetrical. Oral cavity shows mucous membranes moist and pink. Dentition is intact. NECK: Shows anterior throat supple without palpable lymphadenopathy noted. Swallow reflex symmetrical. CHEST: Shows normal on inspection. Breath sounds clear to auscultation bilaterally. HEART: Shows S1, S2 clear. No murmurs auscultated. ABDOMEN: Soft, nontender, nondistended. BACK: Shows spine grossly in the midline. Cervical paraspinous muscle shows symmetrical on inspection, on palpation shows some moderate tenderness diffusely with some significant trigger points throughout the upper, middle and lower distribution of the cervical paraspinous musculature as well as the superior medial and lateral trapezius bilaterally without significant radiation, but significant trigger point areas in the trapezius as well as the upper thoracic paraspinous musculature in the lumbar distribution, slightly more on the right than the left, but present bilaterally, but without significant asymmetry. No radiation that it is from the trigger points indicated or identified. EXTREMITIES: The patient's upper extremities show deep tendon reflexes 2+ in the biceps, triceps tendons. Motor exam is strong with colored leather setter strength rated at 5/5 as is bicep and tricep flexion and equal. Peripheral pulses are 2+ radial distribution. No peripheral edema is noted. Options were discussed with the patient. The patient's old chart was reviewed as her current medication regimen updated. Current review of systems updated today as well. We will proceed with a third in a series of cervical epidural steroid injection today with fluoroscopic guidance. Risks were again discussed including, but not limited to bleeding, infection, possibility of epidural hematoma, subsequent neurological compromise, dural puncture, headaches, spinal cord and/or nerve damage, side effects of steroid medication and poor results regarding pain control. The patient understands and wished to proceed. The patient will return to clinic in approximately 2 weeks for followup. She was counseled on return appointment, activity level and side effects to be aware of. Also, we will start with low-dose naltrexone 1.5 mg every 1 hour prior to bedtime to see if this may decrease some of her myofascial pain as well as overall generalized pain and headaches. We will have a compounding pharmacy work on this and we will fax prescription to them as well. In the meantime, the patient will return for trigger point injections of the bilateral cervical paraspinous musculature, bilateral trapezius musculature, bilateral thoracic paraspinous musculature. She has done very well with these in the past. DIAGNOSES: Cervical radiculopathy with cervical spinal stenosis and cervical degenerative disk disease and myofascial pain. PROCEDURE: Cervical epidural steroid injection, translaminar approach at C6-C7 level using C-arm fluoroscopic guidance under sterile prep and drape using local anesthetic. MEDICATION INJECTED: A total of 120 mg of Depo-Medrol plus 5 mL of preservative-free normal saline and 2 mL of contrast. CONDITION AT DISCHARGE: Stable. The patient tolerated the procedure well, had no complications. JESSICA GASCA MD DR: ANDREW/jay jay JOB#: [id number] / [id number]
== END ==
LOC: PNCL 11:19
PROVIDERS: ATTEND Anesthesiology
DX: M50.123 Cervical disc disorder at C6-C7 level with radiculopathy (principal); M79.18 Myalgia, other site; M48.02 Spinal stenosis, cervical region
CPT/HCPCS: 62321; J1030; J1040; Q9965